=== PATIENT | female | born 1965 | race Caucasian/White ===

== ENCOUNTER 2017-05-08 12:15 | Emergency (ER) | payer OTHER ==
[2017-05-08] MEDS ORDERED: KETOROLAC 30 MG/ML 1 ML VIAL IVP STA (12:54)
[2017-05-08] MEDS ORDERED: METOCLOPRAMIDE 5 MG/ML 2 ML VIAL IVP STA (12:54)
[2017-05-08] MEDS ORDERED: diphenhydrAMINE 50 MG/ML 1 ML VIAL IVP STA (12:54)
[2017-05-08] MEDS ORDERED: SODIUM CHLORIDE 0.9% 1,000 ML IV STA (12:54)
[2017-05-08] MEDS ORDERED: ORPHENADRINE 30 MG/ML 2 ML VIAL IVP STA (12:55)
--- NOTE | 2017-05-08 13:02 | ED ---
Headache HPI - General Chief Complaint: Headache Stated Complaint: Headache x7 days Time Seen by Provider: 05/08/17 12:42 Source: RN notes reviewed, old records reviewed Mode of arrival: ambulatory Limitations: no limitations - History of Present Illness Initial Comments: This is a 51-year-old female presenting to the emergency department with multiple complaints. She complains that she's had a headache on the left right side of her head for the past 6 days. Patient reports that she's been having intermittent headaches for the past few weeks however the past 6 days became progressively worse. She saw her primary care provider and they plan to have her follow-up with a neurologist. She states that she cannot see a neurologist until June. She states she was up all night due to the headache and severe pain. She also states that she's been having some right upper quadrant abdominal pain. She states is worse whenever she takes deep breath. Denies any known fever or chills. Denies any nausea or vomiting. Patient states that the headache is not worse with any bright lights. - Related Data Home Medications Medication Instructions Recorded Confirmed amLODIPine BESYLATE [Norvasc] 5 mg PO DAILY 02/07/15 05/08/17 oxyCODONE HCL/ACETAMINOPHEN 1 tab PO TID PRN 02/07/15 05/08/17 [Oxycodone-Acetaminophen 10-325] ALPRAZolam [Xanax] 0.5 mg PO BID PRN 05/08/17 05/08/17 Cholecalciferol [Vitamin D3] 1,000 unit PO DAILY 05/08/17 05/08/17 Eye Itch Relief Eye Drops 1 drop BOTH EYES DAILY PRN 05/08/17 05/08/17 Ibuprofen [Motrin] 800 mg PO Q8H PRN 05/08/17 05/08/17 Nicotine 14Mg/24Hr Patch [Habitrol 1 patch TRANSDERM DAILY PRN 05/08/17 05/08/17 14Mg/24Hr Patch] [place]-3 Fatty Acids/Fish Oil [Fish 1 cap PO DAILY 05/08/17 05/08/17 Oil 1,000 mg Softgel] buPROPion HCL [Wellbutrin SR] 150 mg PO DAILY 05/08/17 05/08/17 Previous Rx's Medication Instructions Recorded Butalb/APAP/Caff 50-325-40Mg 2 tab PO Q4H PRN #15 tablet 05/08/17 [Fioricet 50-325-40] Allergies Allergy/AdvReac Type Severity Reaction Status Date / Time No Known Allergies Allergy Verified 05/08/17 14:23 Review of Systems ROS Statement: Those systems with pertinent positive or pertinent negative responses have been documented in the HPI. ROS Other: All systems not noted in ROS Statement are negative. Past Medical History Past Medical History: Hypertension Additional Past Medical History / Comment(s): Bilateral carpal tunnel syndrome, plantar fasciitis bilateral. History of Any Multi-Drug Resistant Organisms: None Reported Past Surgical History: Section Additional Past Surgical History / Comment(s): 1986 Past Anesthesia/Blood Transfusion Reactions: No Reported Reaction Past Psychological History: Anxiety, Depression Smoking Status: Current every day smoker Past Alcohol Use History: None Reported Past Drug Use History: None Reported - Past Family History Mother Family Medical History: Cancer Additional Family Medical History / Comment(s): Mother at age 62 from lung ca Father Family Medical History: Hypertension Additional Family Medical History / Comment(s): Father is alive and has hypertension. Brother(s) Additional Family Medical History / Comment(s): Has 2 brothers that are healthy. Patient has one sister that is alive and healthy. She has one sister that suffers spinal cord injury from an accident. Patient has 2 children, one boy that is 22 and healthy, one girl 25 and healthy. General Exam - General Exam Comments Initial Comments: This is a 51-year-old female. Patient does not appear to be in any acute distress. Limitations: no limitations General appearance: alert, in no apparent distress Head exam: Present: atraumatic, normocephalic, normal inspection Eye exam: Present: normal appearance, PERRL, EOMI. Absent: scleral icterus, conjunctival injection, periorbital swelling ENT exam: Present: normal exam, mucous membranes moist Neck exam: Present: normal inspection. Absent: tenderness, meningismus, lymphadenopathy Respiratory exam: Present: normal lung sounds bilaterally. Absent: respiratory distress, wheezes, rales, rhonchi, stridor Cardiovascular Exam: Present: regular rate, normal rhythm, normal heart sounds. Absent: systolic murmur, diastolic murmur, rubs, gallop, clicks GI/Abdominal exam: Present: soft, normal bowel sounds. Absent: distended, tenderness, guarding, rebound, rigid Extremities exam: Present: normal inspection, full ROM, normal capillary refill. Absent: tenderness, pedal edema, joint swelling, calf tenderness Back exam: Present: normal inspection, full ROM Neurological exam: Present: alert, oriented X3, CN II-XII intact Expanded Patient oriented to: Present: person, place, time Speech: Present: fluid speech Cranial nerves: EOM's Intact: Normal, Facial Sensation: Normal Cerebellar function: Finger to Nose: Normal Upper motor neuron: Pronator Drift: Normal Sensory exam: Upper Extremity Light Touch: Normal, Lower Extremity Light Touch: Normal Motor strength exam: RUE: 5, LUE: 5, RLE: 5, LLE: 5 Eye Response: (4) open spontaneously Motor Response: (6) obeys commands Verbal Response: (5) oriented [place] Total: 15 Psychiatric exam: Present: normal affect, normal mood Skin exam: Present: warm, dry, intact, normal color. Absent: rash Course Vital Signs 05/08/17 12:38 Temperature 98.3 F Pulse Rate 74 Respiratory 16 Rate Blood Pressure 147/82 O2 Sat by Pulse 97 Oximetry Medical Decision Making - Medical Decision Making 51-year-old female presents emergency Department with increased headache over the past 6 days. She also has some right upper quadrant abdominal pain. Patient's CAT scan with and without contrast of the brain was reviewed and negative for any acute process. Gallbladder ultrasound shows mildly dilated duct. All for labwork was reviewed and negative for any acute process. Patient has no neurological deficits. Patient reports she's been somewhat better after removal Benadryl and Toradol. Patient was informed of all the results. Discussed that I will discharge the patient at this time close follow- up with her primary care provider. Discussed writing her for adhesion for migraines. Discussed return to emergency department if any alarming signs or symptoms occur. Patient agrees to plan will comply. Return parameters were discussed. - Lab Data Result diagrams: 05/08/17 13:05 05/08/17 13:05 Lab Results 05/08/17 05/08/17 05/08/17 Range/Units 13:05 13:05 13:05 WBC 12.3 H (3.8-10.6) k/uL RBC 4.30 (3.80-5.40) m/uL Hgb 13.2 (11.4-16.0) gm/dL Hct 39.3 (34.0-46.0) % MCV 91.5 (80.0-100.0) fL MCH 30.8 (25.0-35.0) pg MCHC 33.7 (31.0-37.0) g/dL RDW 14.0 (11.5-15.5) % Plt Count 367 (150-450) k/uL Neutrophils % 81 % Lymphocytes % 12 % Monocytes % 4 % Eosinophils % 2 % Basophils % 0 % Neutrophils # 10.0 H (1.3-7.7) k/uL Lymphocytes # 1.5 (1.0-4.8) k/uL Monocytes # 0.5 (0-1.0) k/uL Eosinophils # 0.2 (0-0.7) k/uL Basophils # 0.1 (0-0.2) k/uL PT 10.1 (9.0-12.0) sec INR 1.0 (<1.2) APTT 24.0 (22.0-30.0) sec Sodium 142 (137-145) mmol/L Potassium 4.1 (3.5-5.1) mmol/L Chloride 108 H (98-107) mmol/L Carbon Dioxide 25 (22-30) mmol/L Anion Gap 9 mmol/L BUN 13 (7-17) mg/dL Creatinine 0.65 (0.52-1.04) mg/dL Est GFR (MDRD) Af Amer >60 (>60 ml/min/1.73 sqM) Est GFR (MDRD) Non-Af >60 (>60 ml/min/1.73 sqM) Glucose 93 (74-99) mg/dL Calcium 9.7 (8.4-10.2) mg/dL Total Bilirubin 0.3 (0.2-1.3) mg/dL AST 16 (14-36) U/L ALT 22 (9-52) U/L Alkaline Phosphatase 77 (38-126) U/L Total Protein 6.8 (6.3-8.2) g/dL Albumin 4.1 (3.5-5.0) g/dL - Radiology Data Radiology results: report reviewed CT without contrast is negative for any acute process. Gallbladder ultrasound shows tiny 3 mm echogenic focus within the gallbladder which may represent a non-shadowing stone or gallbladder polyp., That measures slightly prominent 7 mm correlate clinically and if warranted with MRCP or ERCP. Disposition Clinical Impression: Migraine, RUQ discomfort Disposition: HOME SELF-CARE Condition: Good Instructions: Migraine Headache (ED), Biliary Colic (ED) Additional Instructions: Patient advised to follow-up with primary care provider in regards to further evaluation of the abdomen and intermittent abdominal pain. Recommending taking the medication for migraines as directed. QT also take Motrin and Tylenol. Patient should return to the emergency department if any alarming signs or symptoms occur. Prescriptions: Butalb/APAP/Caff 50-325-40Mg [Fioricet 50-325-40] 2 tab PO Q4H PRN #15 tablet PRN Reason: Pain Referrals: Marcelo Choudhary MD [Primary Care Provider] - 1-2 days Kenna Mckeon DO [Doctor of Osteopathic Medicine] - 1-2 days Time of Disposition: 15:31
[2017-05-08] MEDS ORDERED: RX INFO: IV CONTRAST WAS GIVEN 1 EACH MISC MISCELLANE PRN (13:03)
[2017-05-08 13:26] LABS: Basophils # (A) 0.1 k/uL (0-0.2); Basophils % (A) 0 %; CH 30.7; CHCM 33.7; Eosinophils # (A) 0.2 k/uL (0-0.7); Eosinophils % (A) 2 %; HCT 39.3 % (34.0-46.0); HDW 2.87; HGB 13.2 gm/dL (11.4-16.0); Luc # (Auto) 0.17; Luc % (Auto) 1; Lymphocytes # (A) 1.5 k/uL (1.0-4.8); Lymphocytes % (A) 12 %; MCH 30.8 pg (25.0-35.0); MCHC 33.7 g/dL (31.0-37.0); MCV 91.5 fL (80.0-100.0); Mean Platelet Volume 7.4; Monocytes # (A) 0.5 k/uL (0-1.0); Monocytes % (A) 4 %; Neutrophils % (A) 81 %; WBC 12.3 k/uL (3.8-10.6); WBC (Perox) 12.73
[2017-05-08 13:33] LABS: Prothrombin Time 10.1 sec (9.0-12.0)
[2017-05-08 13:36] LABS: ALT 22 U/L (9-52); AST 16 U/L (14-36); Alkaline Phosphatase 77 U/L (38-126); Anion Gap 9 mmol/L; Blood Urea Nitrogen 13 mg/dL (7-17); Calcium 9.7 mg/dL (8.4-10.2); Carbon Dioxide 25 mmol/L (22-30); Chloride 108 mmol/L (98-107); Glucose 93 mg/dL (74-99); Non-African American GFR(MDRD) >60 (>60 ml/min/1.73 sqM); Potassium 4.1 mmol/L (3.5-5.1); Sodium 142 mmol/L (137-145); Total Bilirubin 0.3 mg/dL (0.2-1.3); Total Protein 6.8 g/dL (6.3-8.2)
--- NOTE | 2017-05-08 14:16 | CT ---
EXAMINATION TYPE: CT brain wo/w con DATE OF EXAM: 05/08/2017 COMPARISON: Noncontrast CT brain November 14, 2013 HISTORY: Headache for 6-[address] DLP: 2184 mGycm Automated exposure control for dose reduction was used. CONTRAST: CT scan of the head is performed without and with IV Contrast, patient injected with 100 mL of Omnipa que 300. FINDINGS: Noncontrast images show no acute intracranial hemorrhage or midline shift. The ventricles and sulci a re within normal limits in size. Post contrast images show no suspicious enhancing intraparenchymal mass. The globes are intact and the visualized sinuses are clear. Some patchy opacification of right- sided mastoid air cells is redemonstrated similar to prior. IMPRESSION: No acute intracranial hemorrhage. No suspicious enhancing mass or midline shift.
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
[2017-05-08 15:42] VITALS: BP 140/75; PULSE 77; RESP 18; TEMP 98.4
== END 2017-05-08 15:42 | disposition home or self-care (01) ==
LOC: EC 12:15
DX: G43.909 Migraine, unspecified, not intractable, without status migrainosus (principal); R10.11 Right upper quadrant pain; K83.8 Other specified diseases of biliary tract; R93.5 Abnormal findings on diagnostic imaging of other abdominal regions, including retroperitoneum; I10 Essential (primary) hypertension; F32.9 Major depressive disorder, single episode, unspecified; F17.200 Nicotine dependence, unspecified, uncomplicated; Z79.899 Other long term (current) drug therapy
CPT/HCPCS: 36415; 80053; 85025; 85610; 85730; 76705; 70470; 99284; 96374; 96375 ×3; 96361 ×2; J1200; J2360; J2765; J1885; Q9967

== ENCOUNTER 2017-05-19 10:47 | Emergency (ER) | payer OTHER ==
[2017-05-19] MEDS ORDERED: SODIUM CHLORIDE 0.9% 1,000 ML IV STA (11:09)
[2017-05-19] MEDS ORDERED: METOCLOPRAMIDE 5 MG/ML 2 ML VIAL IVP STA (11:09)
[2017-05-19] MEDS ORDERED: KETOROLAC 30 MG/ML 1 ML VIAL IVP STA (11:09)
[2017-05-19] MEDS ORDERED: SODIUM CHLORIDE 0.9% 500 ML IV STA (11:09)
[2017-05-19] MEDS ORDERED: MAGNESIUM SULFATE-D5W PMX 1 GM in DEXTROSE/WATER 1 100ML.BAG IVPB ONE (11:10)
[2017-05-19] MEDS ORDERED: DEXAMETHASONE SOD PHOSPHATE 10 MG/ML 1 ML VIAL IV STA (11:10)
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
[2017-05-19] MEDS ORDERED: ONDANSETRON 4 MG/2 ML VIAL IVP STA (13:07)
[2017-05-19] MEDS ORDERED: HYDROmorphone 1 MG/ML 1 ML SYRINGE IVP STA (13:07)
[2017-05-19 13:31] VITALS: PULSE 78
[2017-05-19 14:15] VITALS: BP 117/63; RESP 16; TEMP 98.2
== END 2017-05-19 14:15 | disposition home or self-care (01) ==
LOC: EC 10:47
DX: R51 Headache (principal); H66.91 Otitis media, unspecified, right ear; I10 Essential (primary) hypertension; F32.9 Major depressive disorder, single episode, unspecified; F41.9 Anxiety disorder, unspecified; F17.200 Nicotine dependence, unspecified, uncomplicated; Z86.69 Personal history of other diseases of the nervous system and sense organs; Z79.899 Other long term (current) drug therapy
CPT/HCPCS: 99284; 96365; 96375 ×5; 96361; J1100; J2765; J2405; J1885; J1170; J3475

== ENCOUNTER 2017-05-28 03:04 | Inpatient (IN) | payer OTHER ==
[2017-05-28] MEDS ORDERED: ONDANSETRON 4 MG/2 ML VIAL IVP STA (03:44)
[2017-05-28] MEDS ORDERED: HYDROmorphone 1 MG/ML 1 ML SYRINGE IVP STA ×2 (03:44→08:15)
[2017-05-28] MEDS ORDERED: SODIUM CHLORIDE 0.9% 1,000 ML IV STA (03:44)
--- NOTE | 2017-05-28 03:55 | ED ---
General Adult HPI - General Source: patient, RN notes reviewed Mode of arrival: ambulatory Limitations: no limitations <Hao Milton - Last Filed: 05/28/17 03:41> <Stiven Mtz - Last Filed: 05/28/17 05:42> - General Chief complaint: Headache Stated complaint: Headache 8 weeks Time Seen by Provider: 05/28/17 03:18 - History of Present Illness Initial comments: Patient 51-year-old female who presents emergency room today with chief complaint of headaches over the last 3 weeks. She does admit that she's been expressing headache on the right side of her head. She states been constant. She states she's been experiencing pain to her throat and right side of her neck. She states it hurts when she swallows. She states it's been ongoing over the last 8 days. She states she's lost 15 pounds. States that she's also been experiencing some pain to the anterior chest wall. States hurts with palpation. States she has been following up with neurology and has been receiving steroid injections. She states she has not felt any relief. She is scheduled for a CT tomorrow and an MRI following day. Patient denies any recent fever, chills, shortness of breath, chest pain, back pain, abdominal pain, nausea or vomiting, numbness or tingling, dysuria or hematuria, constipation or diarrhea, visual changes, or any other complaints. (Hao Milton) - Related Data Home Medications Medication Instructions Recorded Confirmed amLODIPine BESYLATE [Norvasc] 5 mg PO DAILY 02/07/15 05/19/17 oxyCODONE HCL/ACETAMINOPHEN 1 tab PO TID PRN 02/07/15 05/19/17 [Oxycodone-Acetaminophen 10-325] ALPRAZolam [Xanax] 0.5 mg PO BID PRN 05/08/17 05/19/17 Eye Itch Relief Eye Drops 1 drop BOTH EYES DAILY PRN 05/08/17 05/19/17 Ibuprofen [Motrin] 800 mg PO Q8H PRN 05/08/17 05/19/17 Nicotine 14Mg/24Hr Patch [Habitrol 1 patch TRANSDERM DAILY PRN 05/08/17 05/19/17 14Mg/24Hr Patch] buPROPion HCL [Wellbutrin SR] 150 mg PO DAILY 05/08/17 05/19/17 Escitalopram [Lexapro] 10 mg PO DAILY 05/19/17 05/19/17 Pentoxifylline 400 mg PO BID 05/19/17 05/19/17 Previous Rx's Medication Instructions Recorded Butalb/APAP/Caff 50-325-40Mg 2 tab PO Q4H PRN #15 tablet 05/08/17 [Fioricet 50-325-40] Amoxic-Pot Clav 875-125Mg 1 each PO Q12HR #20 tablet 05/19/17 [Augmentin Xr 875-125] SUMAtriptan SUCCINATE [Imitrex] 50 mg PO ONCE PRN #10 tablet 05/19/17 Allergies Allergy/AdvReac Type Severity Reaction Status Date / Time No Known Allergies Allergy Verified 05/28/17 03:11 Review of Systems ROS Other: All systems not noted in ROS Statement are negative. <Hao Milton - Last Filed: 05/28/17 03:41> ROS Other: All systems not noted in ROS Statement are negative. <Stiven Mtz - Last Filed: 05/28/17 05:42> ROS Statement: Those systems with pertinent positive or pertinent negative responses have been documented in the HPI. Past Medical History Past Medical History: Hypertension Additional Past Medical History / Comment(s): Bilateral carpal tunnel syndrome, plantar fasciitis bilateral. Migraines History of Any Multi-Drug Resistant Organisms: None Reported Past Surgical History: Section Additional Past Surgical History / Comment(s): 1987 Past Anesthesia/Blood Transfusion Reactions: No Reported Reaction Past Psychological History: Anxiety, Depression Smoking Status: Current every day smoker Past Alcohol Use History: None Reported Past Drug Use History: None Reported - Past Family History Mother Family Medical History: Cancer Additional Family Medical History / Comment(s): Mother at age 62 from lung ca Father Family Medical History: Hypertension Additional Family Medical History / Comment(s): Father is alive and has hypertension. Brother(s) Additional Family Medical History / Comment(s): Has 2 brothers that are healthy. Patient has one sister that is alive and healthy. She has one sister that suffers spinal cord injury from an accident. Patient has 2 children, one boy that is 22 and healthy, one girl 25 and healthy. <Hao Milton - Last Filed: 05/28/17 03:41> General Exam Limitations: no limitations <Hao Milton - Last Filed: 05/28/17 03:41> <Stiven Mtz - Last Filed: 05/28/17 05:42> - General Exam Comments Initial Comments: General: The patient is awake and alert, in no distress, and does not appear acutely ill. Eye: Pupils are equal, round and reactive to light, extra-ocular movements are intact. No nystagmus. There is normal conjunctiva bilaterally. No signs of icterus. Ears, nose, mouth and throat: There are moist mucous membranes and no oral lesions. Neck: The neck is supple, there is no tenderness or JVD. Cardiovascular: There is a regular rate and rhythm. No murmur, rub or gallop is appreciated. Respiratory: Lungs are clear to auscultation, respirations are non-labored, breath sounds are equal. No wheezes, stridor, rales, or rhonchi. Gastrointestinal: Soft, non-distended, non-tender abdomen without masses or organomegaly noted. There is no rebound or guarding present. No CVA tenderness. Bowel sounds are unremarkable. Musculoskeletal: Normal ROM, no tenderness. Strength 5/5. Sensation intact. Pulses equal bilaterally 2+. Neurological: A&O x 3. CN II-XII intact. Coordination appears grossly intact. Speech is normal. Patient has normal rapid alternating movements. Symmetrical smile. When sticking tongue straight out does deviate to the right. Strength to the right lower extremity's weaker when compared bilaterally. Finger-nose testing of the right patient does overshoot. Skin: Skin is warm and dry and no rashes or lesions are noted. Psychiatric: Cooperative, appropriate mood & affect, normal judgment. (Hao Milton) Medical Decision Making <Hao Milton - Last Filed: 05/28/17 03:41> - Lab Data Result diagrams: 05/28/17 03:53 05/28/17 03:53 <Stiven Mtz - Last Filed: 05/28/17 05:42> - Medical Decision Making Case was discussed with attending physician Dr. Mtz. Patient did have CT 2 weeks ago which was negative for these any acute abnormalities. Patient's symptoms been ongoing over the last 8 weeks. Patient will be admitted for neurology consult. (Hao Milton) EKG shows normal sinus rhythm at [address] interval is on a 46 QRS is 90 QT interval 392 QTC is 392. Patient's EKG shows no ST segment elevation or depression or T wave abnormalities are noted. (Stiven Mzt) - Lab Data Lab Results 05/28/17 05/28/17 05/28/17 Range/Units 03:50 03:53 03:53 WBC 12.0 H (3.8-10.6) k/uL RBC 3.79 L (3.80-5.40) m/uL Hgb 11.6 (11.4-16.0) gm/dL Hct 35.8 (34.0-46.0) % MCV 94.7 (80.0-100.0) fL MCH 30.7 (25.0-35.0) pg MCHC 32.4 (31.0-37.0) g/dL RDW 15.9 H (11.5-15.5) % Plt Count 334 (150-450) k/uL Neutrophils % 75 % Lymphocytes % 16 % Monocytes % 7 % Eosinophils % 1 % Basophils % 0 % Neutrophils # 8.9 H (1.3-7.7) k/uL Lymphocytes # 1.9 (1.0-4.8) k/uL Monocytes # 0.8 (0-1.0) k/uL Eosinophils # 0.2 (0-0.7) k/uL Basophils # 0.0 (0-0.2) k/uL PT (9.0-12.0) sec INR (<1.2) APTT (22.0-30.0) sec Sodium (137-145) mmol/L Potassium (3.5-5.1) mmol/L Chloride (98-107) mmol/L Carbon Dioxide (22-30) mmol/L Anion Gap mmol/L BUN (7-17) mg/dL Creatinine (0.52-1.04) mg/dL Est GFR (MDRD) Af Amer (>60 ml/min/1.73 sqM) Est GFR (MDRD) Non-Af (>60 ml/min/1.73 sqM) Glucose (74-99) mg/dL Calcium (8.4-10.2) mg/dL Total Bilirubin (0.2-1.3) mg/dL AST (14-36) U/L ALT (9-52) U/L Alkaline Phosphatase (38-126) U/L Total Creatine Kinase <20 L (30-135) U/L CK-MB (CK-2) 0.6 (0.0-2.4) ng/mL CK-MB (CK-2) Rel Index Troponin I <0.012 (0.000-0.034) ng/mL Total Protein (6.3-8.2) g/dL Albumin (3.5-5.0) g/dL Urine Color Light Yellow Urine Appearance Clear (Clear) Urine pH 6.0 (5.0-8.0) Ur Specific [place] 1.013 (1.001-1.035) Urine Protein Negative (Negative) Urine Glucose (UA) Negative (Negative) Urine Ketones Negative (Negative) Urine Blood Negative (Negative) Urine Nitrite Negative (Negative) Urine Bilirubin Negative (Negative) Urine Urobilinogen <2.0 (<2.0) mg/dL Ur Leukocyte Esterase Negative (Negative) 05/28/17 05/28/17 Range/Units 03:53 03:53 WBC (3.8-10.6) k/uL RBC (3.80-5.40) m/uL Hgb (11.4-16.0) gm/dL Hct (34.0-46.0) % MCV (80.0-100.0) fL MCH (25.0-35.0) pg MCHC (31.0-37.0) g/dL RDW (11.5-15.5) % Plt Count (150-450) k/uL Neutrophils % % Lymphocytes % % Monocytes % % Eosinophils % % Basophils % % Neutrophils # (1.3-7.7) k/uL Lymphocytes # (1.0-4.8) k/uL Monocytes # (0-1.0) k/uL Eosinophils # (0-0.7) k/uL Basophils # (0-0.2) k/uL PT 10.0 (9.0-12.0) sec INR 1.0 (<1.2) APTT 22.1 (22.0-30.0) sec Sodium 136 L (137-145) mmol/L Potassium 4.2 (3.5-5.1) mmol/L Chloride 104 (98-107) mmol/L Carbon Dioxide 25 (22-30) mmol/L Anion Gap 7 mmol/L BUN 10 (7-17) mg/dL Creatinine 0.50 L (0.52-1.04) mg/dL Est GFR (MDRD) Af Amer >60 (>60 ml/min/1.73 sqM) Est GFR (MDRD) Non-Af >60 (>60 ml/min/1.73 sqM) Glucose 87 (74-99) mg/dL Calcium 9.2 (8.4-10.2) mg/dL Total Bilirubin 0.4 (0.2-1.3) mg/dL AST 12 L (14-36) U/L ALT 28 (9-52) U/L Alkaline Phosphatase 103 (38-126) U/L Total Creatine Kinase (30-135) U/L CK-MB (CK-2) (0.0-2.4) ng/mL CK-MB (CK-2) Rel Index Troponin I (0.000-0.034) ng/mL Total Protein 5.8 L (6.3-8.2) g/dL Albumin 3.4 L (3.5-5.0) g/dL Urine Color Urine Appearance (Clear) Urine pH (5.0-8.0) Ur Specific [place] (1.001-1.035) Urine Protein (Negative) Urine Glucose (UA) (Negative) Urine Ketones (Negative) Urine Blood (Negative) Urine Nitrite (Negative) Urine Bilirubin (Negative) Urine Urobilinogen (<2.0) mg/dL Ur Leukocyte Esterase (Negative) Disposition Time of Disposition: 03:56 <Hao Milton - Last Filed: 05/28/17 03:41> <Stiven Mtz - Last Filed: 05/28/17 05:42> Clinical Impression: Headache Disposition: ADMITTED IP TO THIS HOSP Condition: Stable
[2017-05-28 04:07] LABS: Basophils % (A) 0 %; CH 31.4; CHCM 33.4; Eosinophils # (A) 0.2 k/uL (0-0.7); Eosinophils % (A) 1 %; HCT 35.8 % (34.0-46.0); HDW 3.22; HGB 11.6 gm/dL (11.4-16.0); Luc # (Auto) 0.14; Luc % (Auto) 1; Lymphocytes # (A) 1.9 k/uL (1.0-4.8); Lymphocytes % (A) 16 %; MCH 30.7 pg (25.0-35.0); MCHC 32.4 g/dL (31.0-37.0); MCV 94.7 fL (80.0-100.0); Mean Platelet Volume 7.8; Monocytes # (A) 0.8 k/uL (0-1.0); Monocytes % (A) 7 %; Neutrophils # (A) 8.9 k/uL (1.3-7.7); Neutrophils % (A) 75 %; RBC 3.79 m/uL (3.80-5.40); RDW 15.9 % (11.5-15.5); WBC (Perox) 13.35
[2017-05-28 04:14] LABS: ALT 28 U/L (9-52); AST 12 U/L (14-36); Alkaline Phosphatase 103 U/L (38-126); Anion Gap 7 mmol/L; Blood Urea Nitrogen 10 mg/dL (7-17); Calcium 9.2 mg/dL (8.4-10.2); Carbon Dioxide 25 mmol/L (22-30); Chloride 104 mmol/L (98-107); Glucose 87 mg/dL (74-99); Non-African American GFR(MDRD) >60 (>60 ml/min/1.73 sqM); Potassium 4.2 mmol/L (3.5-5.1); Sodium 136 mmol/L (137-145); Total Bilirubin 0.4 mg/dL (0.2-1.3); Total Protein 5.8 g/dL (6.3-8.2)
[2017-05-28 04:19] LABS: Partial Thromboplastin Time 22.1 sec (22.0-30.0)
[2017-05-28 04:23] LABS: Appearance,Urine Clear (Clear); Bilirubin,Urine Negative (Negative); Glucose,Urine (UA) Negative (Negative); Ketones,Urine Negative (Negative); Leukocyte Esterase,Urine Negative (Negative); Nitrite,Urine Negative (Negative); Protein,Urine Negative (Negative); Specific Gravity,Urine 1.013 (1.001-1.035); UA Billing (MACRO vs. MICRO) CHEM; Urobilinogen,Urine <2.0 mg/dL (<2.0)
[2017-05-28 04:31] LABS: Creatine Kinase <20 U/L (30-135)
[2017-05-28 04:44] LABS: Creatine Kinase MB 0.6 ng/mL (0.0-2.4); Troponin I <0.012 ng/mL (0.000-0.034)
--- NOTE | 2017-05-28 05:26 | XR ---
EXAM: XR Chest, 2 Views CLINICAL HISTORY: Reason: pain TECHNIQUE: Frontal and lateral views of the chest. COMPARISON: 09/26/08 radiographs. FINDINGS: Lungs: New round masslike infiltrate overlying the left hilum on the frontal view, located anteriorly within the left upper lobe on the lateral view. The right lung is free of infiltrate. Of incidental note is a prominent nipple shadow overlying the right base. Pleural space: No pleural effusion or pneumothorax. Heart: Interval enlargement, with borderline cardiomegaly present. Mediastinum: The mediastinal contours are now slightly more prominent. Bones/joints: Degenerative changes and minimal levoscoliosis centered at T7-8, accompanied by mild rightward loss of height at T7 that appears chronic as does mild anterior loss of height at T12. Upper abdomen: Mild elevation of the left diaphragm is new. IMPRESSION: 1. New left lung infiltrate that appears to be located anterior to the left hilum. This may represent pneumonia in the appropriate clinical setting. Correlate clinically with follow-up recommended to ensure clearing and exclude underlying pathology including lung neoplasm. Alternatively, CT could be considered for further assessment. 2. There is now mild elevation of the left diaphragm and mild interval enlargement of the cardiomediastinal silhouette. [employer] 05/28/17 05:38 Verify Receipt with Nurse Verified receipt with JANKI Mc, given to Dr. Mtz on 05/28 05:37 (-04:00)
[2017-05-28] MEDS ORDERED: KETOROLAC 30 MG/ML 1 ML VIAL IM STA (08:17)
[2017-05-28] MEDS ORDERED: SUMAtriptan SUCCINATE 50 MG TAB PO PRN (08:39)
[2017-05-28] MEDS ORDERED: KETOTIFEN 0.025% OPHTH DROPS 5 ML BTL BOTH EYES PRN (08:39)
--- NOTE | 2017-05-28 10:09 | US ---
EXAMINATION TYPE: US carotid duplex BILAT DATE OF EXAM: 05/28/2017 COMPARISON: NONE CLINICAL HISTORY: Stenosis. EXAM MEASUREMENTS: RIGHT: Peak Systolic Velocity (PSV) cm/sec ----- Right CCA: 83.8 ----- Right ICA: 145.0 ----- Right ECA: 73.5 ICA/CCA ratio: 1.7 RIGHT: End Diastole cm/sec ----- Right CCA: 28.5 ----- Right ICA: 62.2 ----- Right ECA: 9.5 LEFT: Peak Systolic Velocity (PSV) cm/sec ----- Left CCA: 84.1 ----- Left ICA: 160.1 ----- Left ECA: 84.4 ICA/CCA ratio: 1.9 LEFT: End Diastole cm/sec ----- Left CCA: 26.3 ----- Left ICA: 69.8 ----- Left ECA: 84.4 VERTEBRALS (direction of flow): Right Vertebral: Antegrade Left Vertebral: Antegrade Patient in immense pain and unable to tilt or move neck to cooperate with examiner, this in addition to tortuous vessels made exam technically difficult. Slight velocity elevations seen bilaterally, may be due to tortuous vessels, mild plaque seen. IMPRESSION: 1. Mild plaque bilaterally with no significant hemodynamic stenosis noted bilaterally (50% or less) b y indirect measurements of the internal carotid arteries with Doppler ultrasound.
[2017-05-28] MEDS: ENOXAPARIN 40 MG/0.4 ML SYRINGE SQ SCH (10:58)
[2017-05-28] MEDS: PENTOXIFYLLINE 400 MG TABLET.ER PO SCH ×2 (10:59→21:37)
[2017-05-28] MEDS: amLODIPine 5 MG TAB PO SCH (10:59)
[2017-05-28] MEDS: buPROPion SR 150 MG TABLET.ER PO SCH (10:59)
[2017-05-28] MEDS: ESCITALOPRAM 10 MG TAB PO SCH (10:59)
[2017-05-28] MEDS: NICOTINE 14MG/24HR PATCH TRANSDERM PRN (10:59)
[2017-05-28] MEDS: HYDROmorphone 1 MG/ML 1 ML SYRINGE IVP PRN ×4 (12:58→21:37)
[2017-05-28] MEDS: oxyCODONE-APAP 10-325MG 1 EACH TAB PO PRN ×2 (14:44→22:46)
[2017-05-28] MEDS ORDERED: LORazepam 2 MG/ML INJ IV ONE (15:45)
[2017-05-28] MEDS ORDERED: LORazepam 2 MG/ML INJ IV STA (16:04)
[2017-05-28] MEDS ORDERED: RX INFO: IV CONTRAST WAS GIVEN 1 EACH MISC MISCELLANE PRN ×2 (18:24→20:10)
--- NOTE | 2017-05-28 18:39 | MR ---
EXAMINATION TYPE: MR brain wo con DATE OF EXAM: 05/28/2017 COMPARISON: NONE HISTORY: Headache, ear pain, neck pain and slurred speech Standard multiplanar, multisequence MRI departmental protocol Multiplanar, multisequence images of the brain were acquired. Diffusion weighted imaging was performe d. FINDINGS: Ventricles and sulci appear normal. There is no mass effect nor midline shift. There is no sign of intracranial hemorrhage. Armstrong and white matter structures have fairly normal signal pattern. There is no evidence of cerebral edema. There is no sign of acute cortical infarct. Brainstem appears normal. Corpus callosum appears normal. Sella turcica is normal. IMPRESSION: MR scan of the brain is normal for age.
--- NOTE | 2017-05-28 18:44 | MR ---
EXAMINATION TYPE: MR neck wo/w con DATE OF EXAM: 05/28/2017 COMPARISON: NONE HISTORY: Headache, ear pain, neck pain and slurred speech CONTRAST: Standard multiplanar, multisequence MRI departmental protocol utilizing 4.5 ml mL intravenous Gadavis t gadolinium contrast. FINDINGS: Parotid glands are symmetric. Submandibular salivary glands appear normal. Cervical spine a ppears intact. There is no evidence of spinal stenosis. Cervical spinal cord appears normal. There is no evidence of a pharyngeal mass. Exam is limited slightly by motion. I see no evidence of cervical adenopathy. There is normal flow void in the carotid and vertebral arteries. The contrast images show no pathologic enhancement. IMPRESSION: Negative MR scan of the neck. I do not see a cause for the patient's symptoms.
--- NOTE | 2017-05-28 18:49 | MR ---
EXAMINATION TYPE: MR angio head wo/neck wo/w con DATE OF EXAM: 05/28/2017 COMPARISON: NONE HISTORY: Headache, ear pain, neck pain and slurred speech TECHNIQUE: Time of flight images focusing on the [place] were performed without contrast.. 2-D and 3-D postprocessing imaging is performed. FINDINGS: There is arterial flow in the vertebrobasilar artery system. There is arterial flow in the anterior middle and posterior cerebral arteries. There is no evidence of aneurysm or neovascularity. There is flow in the left posterior communicating artery. There is no mass effect. There is normal branching pattern of the great vessels on the aortic arch. There is wide patency of t he common internal and external carotid arteries bilaterally. There is wide patency of the vertebral arteries. There is no evidence of stenosis. There is no sign of dissection. IMPRESSION: Normal MR angiogram of the brain. Normal MR angiogram of the neck.
--- NOTE | 2017-05-28 20:31 | CT ---
EXAMINATION TYPE: CT angio chest DATE OF EXAM: 05/28/2017 8:11 PM COMPARISON: NONE HISTORY: Mid chest pain, painful swallowing and tongue swelling. CT DLP: 106.70 mGycm Automated exposure control for dose reduction was used. CONTRAST: CTA scan of the thorax is performed with IV Contrast, patient injected with 72 mL of Omnipaque 350, p ulmonary embolism protocol. There are 3-D post processed images.. FINDINGS: There is extensive abnormal soft tissue density in the mediastinum encasing the left pulmonary artery and also adjacent to the aortic arch. There is 6 x 4 cm masslike area at the left pulmonary hilum ex tending into the left upper lobe. I see no filling defects in the pulmonary arteries. There is small left pleural effusion. There is no evidence of aortic aneurysm or dissection. Heart is slightly enlarged. There is mild infiltrate at the left lung base. There is interstitial infiltrate in the left upper lo be. There are destructive changes in the T7 vertebral body with slight loss of height. 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 DESTRUCTIVE CHANGES IN T7 VERTEBRA CONSISTENT WITH METASTATIC DISEASE. NO EVIDENCE OF PULMONARY EMBOLISM. SMALL LEFT PLEURAL EFFUSION WITH MILD INFILTRATE IN THE LEFT LOWER LOBE.
[2017-05-29] MEDS: HYDROmorphone 1 MG/ML 1 ML SYRINGE IVP PRN ×9 (00:46→23:18)
[2017-05-29] MEDS: oxyCODONE-APAP 10-325MG 1 EACH TAB PO PRN ×3 (06:17→21:23)
[2017-05-29 06:52] LABS: Cholesterol 137 mg/dL (<200); HDL Cholesterol 51 mg/dL (40-60)
--- NOTE | 2017-05-29 07:43 | CONS ---
CONSULTATION REASON FOR CONSULTATION: Painful swallowing, headache. HISTORY: This is a 51-year-old, white female, who states that she has had headaches for about 8 weeks. These are diffuse. She has had headaches in the past including migraines but these she feels are different. She has also had some pain with swallowing, which is a sharp stabbing pain diffusely in the right neck mainly when she swallows and therefore has lost some weight. She also has pain of the anterior chest wall superiorly, which is quite sensitive even to light touch. She did see a neurologist as an outpatient recently and had some steroid injections with no improvement. She had a CT as an outpatient of the brain, which was negative apparently. She yesterday had brain MRI, neck MRI, which was negative. Head and neck MRA which were negative and carotid Doppler study which was unremarkable. Chest x-ray did have suspicious mass and yesterday also had a chest CT angiography, which showed a 6 x 4 cm mass left pulmonary hilum into the left upper lobe. There was also a destructive change in the T7 vertebra. PAST MEDICAL HISTORY: Past medical history is positive hypertension, carpal tunnel syndrome, plantar fasciitis, migraines. PAST SURGICAL HISTORY: MEDICATIONS AT HOME: Norvasc, oxycodone, Xanax, Motrin, Habitrol, Wellbutrin, Lexapro, pentoxifylline. ALLERGIES: No known drug allergies. SOCIAL HISTORY: Does smoke. Denies alcohol use. FAMILY HISTORY: Family history positive for lung cancer in her mother. REVIEW OF SYSTEMS: The patient denies dysphagia, but has pain with swallowing and she has had no hoarseness or otalgia. Review of systems otherwise noncontributory. PHYSICAL EXAM: Patient is afebrile. GENERAL: This is a well-developed, adult, white female, in no acute distress. She is conversant, awake, alert and oriented x3. HEENT: Head normocephalic, atraumatic. Ears bilateral ear canals clear. Tympanic membranes unremarkable. of the nose shows obstruction. Mouth and throat shows mild dryness of the oral cavity, but no abnormal masses or lesions. Hypopharynx and larynx with flexible laryngoscopy shows no abnormal masses or lesions. NECK: Supple without adenopathy. There is point tenderness diffusely over the upper chest wall although no masses were noted or erythema. ASSESSMENT: 1. Odynophagia. 2. Mediastinal mass with destructive lesion T7. PLAN: The patient's symptoms appear to be neurologic in nature such as neuralgia and certainly could be related to her underlying mass, which is quite concerning as well as the finding on T7. Would recommend cardiothoracic and/or pulmonary consultation for further evaluation and diagnosis. Continue neurology workup also. Also it appears that she will ultimately need oncology consultation also. If these workups are noncontributory and she continues to have difficulties with the painful swallowing then please re-consult. MMODL / IJN: [id number] /
--- NOTE | 2017-05-29 07:49 | PCN ---
PROCEDURE NOTE PROCEDURE NOTE: PREOPERATIVE DIAGNOSIS: Odynophagia. POSTOPERATIVE DIAGNOSIS: Odynophagia. PROCEDURE: Flexible laryngoscopy. ANESTHESIA: None. COMPLICATIONS: None. BLOOD LOSS: None. PROCEDURE: The patient was in her hospital bed and flexible nasopharyngoscopy/laryngoscopy was performed through the right nasal cavity with a systematic evaluation of the right nasal cavity, nasopharynx, oropharynx, hypopharynx and larynx with no abnormal masses or lesions noted. Normal vocal cord mobility. Laryngoscope was withdrawn. Patient tolerated this well. No complications. MMODL / IJN: [id number] /
[2017-05-29] MEDS: PENTOXIFYLLINE 400 MG TABLET.ER PO SCH ×2 (08:38→20:25)
[2017-05-29] MEDS: buPROPion SR 150 MG TABLET.ER PO SCH (08:38)
[2017-05-29] MEDS: ENOXAPARIN 40 MG/0.4 ML SYRINGE SQ SCH (08:38)
[2017-05-29] MEDS: amLODIPine 5 MG TAB PO SCH (08:38)
[2017-05-29] MEDS: ESCITALOPRAM 10 MG TAB PO SCH (08:38)
--- NOTE | 2017-05-29 08:57 | CONS ---
CONSULTATION DATE OF SERVICE: 05/28/2017 CHIEF COMPLAINT: Headache. HISTORY OF PRESENT ILLNESS: Mrs. Campa is a pleasant 51-year-old, female, who was being evaluated today on 05/28/2017 by the Neurology Service per the request of Dr. Lora for an intractable headache. The patient has recently established care at my clinic and had been complaining of a daily headache for over 3 weeks. The patient does have previous history of headaches but has never had one lasting this long. The headache is mostly in the right frontal parietal region and she describes it as a constant pressure pain that can be throbbing at times. She had been tried on IV steroid regimen but she denies any improvements. In the office, she was also complaining of sternal pain which was reproducible and quite tender to the touch. A chest x-ray was done which showed a masslike lesion in the left hilum area. The patient was brought into [facility] Emergency Room for further workup. She had also been complaining of severe pain with swallowing. She has lost over 10 pounds over the past couple of months. She denies any fevers or chills. I did order an MRI of the brain and neck, both of which were normal. Her MRA of the neck showed no significant stenosis or any evidence of dissection. Her CBC showed mild leukocytosis at 12.0 and her comprehensive metabolic profile and urinalysis were normal. Her carotid Doppler showed no hemodynamically significant stenosis. She is receiving Dilaudid as needed for her headache which is helping her somewhat as it reduces her pain from a 9/10 to a 6/10. PAST MEDICAL HISTORY: Hypertension, carpal tunnel syndrome, migraine headaches, depression, anxiety disorder, history of . SOCIAL HISTORY: The patient is a current every day smoker. She denies any alcohol or drug use. FAMILY HISTORY: Positive for lung cancer and hypertension. HOME MEDICATIONS: Reviewed in the chart. ALLERGIES: No known drug allergies. REVIEW OF SYSTEMS: CONSTITUTIONAL: As mentioned above. EYES: Negative. ENT: Positive for ear pain. CARDIOVASCULAR: As mentioned above. RESPIRATORY: Negative. NEUROLOGICAL: As mentioned above. She denies any lateralizing numbness or weakness. GASTROINTESTINAL: As mentioned above. GENITOURINARY: Negative. PSYCHIATRIC: Positive for history of depression and anxiety disorder. MUSCULOSKELETAL: As mentioned above. ENDOCRINE: Negative. DERMATOLOGICAL: Negative. PHYSICAL EXAM: Vital signs show a temperature of 98.0, pulse 69, respirations 16, blood pressure 155/82. GENERAL APPEARANCE: The patient is a thin female, who appears to be in mild distress due to pain. HEENT: Normocephalic, atraumatic, no facial asymmetry is seen. NECK: Supple with no masses felt. CARDIOVASCULAR: Regular rate and rhythm. ABDOMEN: Nontender nondistended. Extremities showed no edema or clubbing. NEUROLOGICAL EXAM: The patient is alert, aware and oriented x3. Speech and language are normal. No lateralizing weakness is seen on strength testing. Gait is normal. Sensory exam was normal to light touch in all 4 extremities. No facial asymmetry is seen on cranial nerve testing. No tremors or seizure-like activity is seen. IMPRESSION: 1. Intractable headache. 2. Atypical chest pain. 3. Lung mass. 4. Dysphagia. 5. Neck pain. 6. Tobacco dependence. RECOMMENDATION: The patient's headache continues to be present but is being relieved with Dilaudid. Her MRI of the brain and MRA of the brain were normal and she was reassured from that standpoint. There are significant concerns regarding her reproducible chest pain and dysphagia as her chest x-ray does show an evidence of a large mass. The patient has had significant weight loss lately and she is a tobacco user and has a family history of lung cancer. A CT scan of the chest has been ordered. I do recommend a consultation with Oncology and Pulmonology. I will consult Speech Therapy for her dysphagia. Continue Dilaudid as needed. Prognosis is guarded. I will continue to follow with you. Further recommendations to follow. Thank you for allowing me to participate in the care of your patient. If you have any questions, please feel free to contact me. MMODL / IJN: [id number] /
[2017-05-29] MEDS: ONDANSETRON 4 MG/2 ML VIAL IVP PRN ×2 (11:04→20:23)
[2017-05-29] MEDS: NICOTINE 14MG/24HR PATCH TRANSDERM PRN (11:19)
[2017-05-29 12:10] VITALS: BMI 18.4
[2017-05-29] MEDS: BUTALB/APAP/CAFF 50-325-40MG TAB PO PRN ×2 (12:23→20:25)
--- NOTE | 2017-05-29 13:34 | P.CNPUL ---
History of Present Illness Consult date: 05/29/17 Requesting physician: Tushar Lora Reason for consult: abnormal CXR/CT Chief complaint: Headache History of present illness: This is a 51-year-old female, heavy smoker, primarily a patient with Dr. Choudhary, patient was admitted yesterday on 05/28/2017 with severe persistent headache for the last 3 weeks. Patient never had a headache lasting that long. Described the headache as mostly in the right frontal parietal region, constant pressure and pain, throbbing at times. Tried on steroids, but no improvement. Patient was seen by her primary care physician for her headaches, and no specific cause for her headache was discovered. Patient came into the ER yesterday complaining of headaches, and since admission she had an extensive workup for her headaches including head and neck MRI/MRA, neck MRI, brain MRI, and these were all nondiagnostic. Part of the workup in the ER included a chest x-ray which I reviewed last night, and I felt certainly that the patient has a left hilar mass. I ordered a CT of the chest to be done this morning. Indeed her CT of the chest did show a large left upper lobe and mediastinal mass consistent with malignancy. The mass seems to be encasing the left pulmonary artery and it is adjacent to the aortic arch. Measured 64 cm and extending from the left hilum into the left upper lobe. There was also evidence of destructive changes noted in T7 vertebral consistent with metastatic disease. Patient has been complaining of 15 pound weight loss over the last couple of months, generalized weakness, fatigue, malaise, and again for the last few weeks the patient has been complaining of severe right-sided headaches. Patient has also been complaining of difficulty swallowing and pain when she swallows. Hence her oral intake has been very poor because of the pain upon swallowing. For some reason patient was seen by ENT for odynophagia symptoms, and she underwent direct laryngoscope he which is definitely nondiagnostic. At any rate after evaluating the patient, I recommended that the patient undergoes bronchoscopy and endobronchial or possibly transbronchial biopsy of the left upper lobe mass which seems to be extending from the left hilum all the way up to the left upper lobe. Patient was made aware that this is a malignant lesion unless proven otherwise. And considering the distal duct of lesion of thoracic vertebra #7 this is consistent with metastatic lung carcinoma, however a tissue diagnosis would have to be made. Review of Systems 14 point review of systems were obtained, please refer to pertinent positives noted in HPI, otherwise all remaining systems are negative. Past Medical History Past Medical History: Hypertension Additional Past Medical History / Comment(s): Bilateral carpal tunnel syndrome, plantar fasciitis bilateral. Migraines History of Any Multi-Drug Resistant Organisms: None Reported Past Surgical History: Section Additional Past Surgical History / Comment(s): 1986 Past Anesthesia/Blood Transfusion Reactions: No Reported Reaction Past Psychological History: Anxiety, Depression Smoking Status: Current every day smoker Past Alcohol Use History: None Reported Past Drug Use History: None Reported - Past Family History Mother Family Medical History: Cancer Additional Family Medical History / Comment(s): Mother at age 62 from lung ca Father Family Medical History: Hypertension Additional Family Medical History / Comment(s): Father is alive and has hypertension. Brother(s) Additional Family Medical History / Comment(s): Has 2 brothers that are healthy. Patient has one sister that is alive and healthy. She has one sister that suffers spinal cord injury from an accident. Patient has 2 children, one boy that is 22 and healthy, one girl 25 and healthy. Medications and Allergies Home Medications Medication Instructions Recorded Confirmed Type amLODIPine BESYLATE [Norvasc] 5 mg PO DAILY 02/07/15 05/28/17 History oxyCODONE HCL/ACETAMINOPHEN 1 tab PO TID PRN 02/07/15 05/28/17 History [Oxycodone-Acetaminophen 10-325] ALPRAZolam [Xanax] 0.5 mg PO BID PRN 05/08/17 05/28/17 History Butalb/APAP/Caff 50-325-40Mg 2 tab PO Q4H PRN #15 tablet 05/08/17 05/28/17 Rx [Fioricet 50-325-40] Eye Itch Relief Eye Drops 1 drop BOTH EYES DAILY PRN 05/08/17 05/28/17 History Ibuprofen [Motrin] 800 mg PO Q8H PRN 05/08/17 05/28/17 History Nicotine 14Mg/24Hr Patch [Habitrol 1 patch TRANSDERM DAILY PRN 05/08/17 History 14Mg/24Hr Patch] buPROPion HCL [Wellbutrin SR] 150 mg PO DAILY 05/08/17 05/28/17 History Escitalopram [Lexapro] 10 mg PO DAILY 05/19/17 05/28/17 History Pentoxifylline 400 mg PO BID 05/19/17 05/28/17 History SUMAtriptan SUCCINATE [Imitrex] 50 mg PO DAILY PRN 05/28/17 05/28/17 History Allergies Allergy/AdvReac Type Severity Reaction Status Date / Time No Known Allergies Allergy Verified 05/28/17 07:01 Physical Exam Vitals: Vital Signs Temp Pulse Resp BP Pulse Ox 05/29/17 04:00 99.4 F 71 18 160/81 97 05/29/17 00:00 98.0 F 67 18 128/82 95 05/28/17 20:00 98.8 F 66 20 153/74 96 05/28/17 16:00 98 F 69 16 155/82 95 05/28/17 14:56 69 16 155/82 95 Intake and Output 05/28/17 05/29/17 05/29/17 22:59 06:59 14:59 Intake Total 200 240 Balance 200 240 Intake: Oral 200 240 Other: Voiding Method Toilet # Voids 1 Weight 44.3 kg 44.3 kg Patient Weight 05/30/17 06:59 Weight 44.3 kg General: Revealed a very pleasant 51-year-old female, in no form of respiratory distress. Patient looks a bit frail. Eye: PERRLA, EOMI, no icterus.. Ears, nose, mouth and throat: Moist mucous membranes, normal nasal mucosa. Throat is clear. Neck: The neck is supple, no neck masses, no JVD, no thyromegaly, no stridor. Cardiovascular: Normal S1 and S2, no gallops.. Respiratory: Clear throughout, no crackles nor rhonchi no wheezes. Chest wall examined, no tenderness. No tenderness noted in the thoracic spine. Gastrointestinal: Soft, nontender, no megaly, no rebound, no guarding. Positive bowel sounds. Musculoskeletal: Normal ROM, no tenderness. No tenderness noted in the mid thoracic spine. Neurological: A&O x 3. CN II-XII intact. No focal neurologic deficit was appreciated or noted. Skin: Skin is warm and dry and no rashes or lesions are noted. Psychiatric: Normal affect, normal mood, a bit anxious about her condition. Results - Laboratory Findings CBC and BMP: 05/28/17 03:53 05/28/17 03:53 PT/INR, D-dimer PT 10.0 sec (9.0-12.0) 05/28/17 03:53 INR 1.0 (<1.2) 05/28/17 03:53 Abnormal lab findings: Abnormal Labs 05/28/17 05/28/17 05/28/17 03:53 03:53 03:53 WBC 12.0 H RBC 3.79 L RDW 15.9 H Neutrophils # 8.9 H Sodium 136 L Creatinine 0.50 L AST 12 L Total Creatine Kinase <20 L Total Protein 5.8 L Albumin 3.4 L - Diagnostic Findings Chest x-ray: image reviewed CT scan - chest: image reviewed (Failure to noted in HPI.) Assessment and Plan Plan: Impression: 1 left hilar mass, T7 destructive lesion, consistent with bronchogenic carcinoma unless proven otherwise. 2 severe cephalgia, workup is in progress, being followed by neurology. Her headache may or may not be related to her underlying malignancy. 3 history of smoking, most likely we are dealing with small cell lung cancer. 4 weight loss secondary to underlying malignancy unless proven otherwise. 5 pain upon swallowing/odynophagia, most likely secondary to esophageal involvement by the mediastinal tumor. 6 suspect some mild component of COPD related to chronic tobacco dependence syndrome. However asymptomatic. Recommendation: Patient was scheduled for bronchoscopy and endobronchial possibly transbronchial biopsy of the left upper lobe area based on the findings from the bronchoscopy, further recommendations will follow. Would recommend oncology and radiation oncology consultation on this patient. Time with Patient: Greater than 30
--- NOTE | 2017-05-29 16:14 | P.HPIM ---
History of Present Illness Patient is they [id number] female was seen in neurology clinic was sent in here with after she had a chest x-ray that showed a mass. Patient follows up with her in neurology clinic for the headache has been going on for about 3 weeks patient apparently had uncontrollable headache presently when I evaluated this pretty much well controlled and patient is sitting comfortably on the bed watching TV at that time. And the patient is on multiple medications including Dilaudid added ketorolac patient is also on Fioricet. Patient's headache is in the frontal parietal area patient had underwent extensive workup with MRI and MRA of the head which is essentially within normal limits patient had a CAT scan of the chest with that was done which showed a 6 into 4 cm mass in the left hilum and left upper lobe. Patient was a valid or pulmonology and patient is will undergo bronchoscopy tomorrow patient was also evaluated by ENT. All these consults were placed from ER patient apparently had a 15 pound weight loss. Patient also has a lesion in the vertebrae in the thoracic area since possibility of metastasis. Review of Systems REVIEW OF SYSTEMS: CONSTITUTIONAL: No fever, no malaise, no fatigue. HEENT: No recent visual problems or hearing problems. Denied any sore throat. CARDIOVASCULAR: No chest pain, orthopnea, PND, no palpitations, no syncope. PULMONARY: No shortness of breath, no cough, no hemoptysis. GASTROINTESTINAL: No diarrhea, no nausea, no vomiting, no abdominal pain. Normoactive bowel sounds. NEUROLOGICAL: no weakness, no numbness. HEMATOLOGICAL: Denies any bleeding or petechiae. GENITOURINARY: Denies any burning micturition, frequency, or urgency. MUSCULOSKELETAL/RHEUMATOLOGICAL: Denies any joint pain, swelling, or any muscle pain. ENDOCRINE: Denies any polyuria or polydipsia. The rest of the 14-point review of systems is negative. Past Medical History Past Medical History: Hypertension Additional Past Medical History / Comment(s): Bilateral carpal tunnel syndrome, plantar fasciitis bilateral. Migraines History of Any Multi-Drug Resistant Organisms: None Reported Past Surgical History: Section Additional Past Surgical History / Comment(s): 1986 Past Anesthesia/Blood Transfusion Reactions: No Reported Reaction Past Psychological History: Anxiety, Depression Smoking Status: Current every day smoker Past Alcohol Use History: None Reported Past Drug Use History: None Reported - Past Family History Mother Family Medical History: Cancer Additional Family Medical History / Comment(s): Mother at age 62 from lung ca Father Family Medical History: Hypertension Additional Family Medical History / Comment(s): Father is alive and has hypertension. Brother(s) Additional Family Medical History / Comment(s): Has 2 brothers that are healthy. Patient has one sister that is alive and healthy. She has one sister that suffers spinal cord injury from an accident. Patient has 2 children, one boy that is 22 and healthy, one girl 25 and healthy. Medications and Allergies Home Medications Medication Instructions Recorded Confirmed Type amLODIPine BESYLATE [Norvasc] 5 mg PO DAILY 02/07/15 05/28/17 History oxyCODONE HCL/ACETAMINOPHEN 1 tab PO TID PRN 02/07/15 05/28/17 History [Oxycodone-Acetaminophen 10-325] ALPRAZolam [Xanax] 0.5 mg PO BID PRN 05/08/17 05/28/17 History Butalb/APAP/Caff 50-325-40Mg 2 tab PO Q4H PRN #15 tablet 05/08/17 05/28/17 Rx [Fioricet 50-325-40] Eye Itch Relief Eye Drops 1 drop BOTH EYES DAILY PRN 05/08/17 05/28/17 History Ibuprofen [Motrin] 800 mg PO Q8H PRN 05/08/17 05/28/17 History Nicotine 14Mg/24Hr Patch [Habitrol 1 patch TRANSDERM DAILY PRN 05/08/17 History 14Mg/24Hr Patch] buPROPion HCL [Wellbutrin SR] 150 mg PO DAILY 05/08/17 05/28/17 History Escitalopram [Lexapro] 10 mg PO DAILY 05/19/17 05/28/17 History Pentoxifylline 400 mg PO BID 05/19/17 05/28/17 History SUMAtriptan SUCCINATE [Imitrex] 50 mg PO DAILY PRN 05/28/17 05/28/17 History Allergies Allergy/AdvReac Type Severity Reaction Status Date / Time No Known Allergies Allergy Verified 05/28/17 07:01 Physical Exam Vitals: Vital Signs Temp Pulse Resp BP Pulse Ox 05/29/17 04:00 99.4 F 71 18 160/81 97 05/29/17 00:00 98.0 F 67 18 128/82 95 05/28/17 20:00 98.8 F 66 20 153/74 96 Intake and Output 05/29/17 05/29/17 05/29/17 06:59 14:59 22:59 Intake Total 360 Balance 360 Intake: Oral 360 Other: # Voids 1 2 2 Weight 44.3 kg 44.3 kg Patient Weight 05/30/17 06:59 Weight 44.3 kg PHYSICAL EXAMINATION: GENERAL: The patient is alert and oriented x3, not in any acute distress. Well developed, well nourished. HEENT: Pupils are round and equally reacting to light. EOMI. No scleral icterus. No conjunctival pallor. Normocephalic, atraumatic. No pharyngeal erythema. No thyromegaly. CARDIOVASCULAR: S1 and S2 present. No murmurs, rubs, or gallops. PULMONARY: Chest is clear to auscultation, no wheezing or crackles. ABDOMEN: Soft, nontender, nondistended, normoactive bowel sounds. No palpable organomegaly. MUSCULOSKELETAL: No joint swelling or deformity. EXTREMITIES: No cyanosis, clubbing, or pedal edema. NEUROLOGICAL: Gross neurological examination did not reveal any focal deficits. SKIN: No rashes. Results CBC & Chem 7: 05/28/17 03:53 05/28/17 03:53 Thrombosis Risk Factor Assmnt - Choose All That Apply Any of the Below Risk Factors Present?: Yes Assessment and Plan Plan: #1 headache: Etiology is unclear patient may have a primary headache syndromes, neurology validate the patient although workup is negative. Patient pain is well controlled now. #2 left to have a lung mass highly suspicious for lung cancer with metastatic lesions to the 7 patient will undergo endobronchial biopsy tomorrow #3 odynophagia: Was evaluated by ENT and appears to be secondary to [place] visual involvement by the mediastinal tumor #4 possibility of early stages of COPD although not in acute exacerbation #5 carpal tunnel syndrome #6 hypertension
--- NOTE | 2017-05-29 17:10 | P.PN ---
Subjective Principal diagnosis: Patient is a pleasant 51-year-old female who is being followed by the neurology service for intractable headache. The patient has recently established care in our office for intractable headache 3 weeks. Patient has been tried on IV steroid regimen but denies any improvement. In the office, she was also complaining of sternal pain which was reproducible and quite tender to the touch. Chest x-ray was done which showed a masslike lesion left hilar area. Patient called the office complaining of no relief of her headache and was instructed to go to [facility] emergency room for further evaluation. Patient had MRI of the brain and neck which were both normal. Patient had MRI a of the neck which showed no significant stenosis or any evidence of dissection. Carotid Dopplers were done which showed no hemodynamically significant stenosis. Patient reports her headache is tolerable at this time. She rates it at a 7 out of 10. She is currently receiving Dilaudid as needed for pain. At the time of my evaluation she is resting comfortably in bed and appears to be in no acute distress. Objective - Vital Signs Vital signs: Vital Signs Temp 99.4 F 05/29/17 04:00 Pulse 71 05/29/17 04:00 Resp 18 05/29/17 04:00 BP 160/81 05/29/17 04:00 Pulse Ox 97 05/29/17 04:00 Intake & Output 05/28/17 05/29/17 05/29/17 18:59 06:59 18:59 Intake Total 200 360 Balance 200 360 Weight 46.72 kg 44.3 kg 44.3 kg Intake: Oral 200 360 Other: Voiding Method Toilet # Voids 1 1 2 - Exam PHYSICAL EXAM: GENERAL APPEARANCE: Patient is a well-developed, female who appears to be in no acute distress. HEENT: Normocephalic, atraumatic, no facial asymmetry is seen. Neck is supple with no masses felt. CARDIOVASCULAR: Regular rate and rhythm. ABDOMEN: Nontender, nondistended. EXTREMITIES: Show no edema or clubbing. NEUROLOGICAL EXAM: Patient is awake, alert, and oriented 3. Speech and language are normal. Strength is full in all 4 extremities. Sensory exam to light touch is normal in all 4 extremities. No facial asymmetry is seen on cranial nerve testing. No seizures or tremors noted. - Labs CBC & Chem 7: 05/28/17 03:53 05/28/17 03:53 Assessment and Plan Plan: Impression: 1. Intractable headache 2. Atypical chest pain 3. Lung mass 4. Dysphagia 5. Neck pain 6. Tobacco dependence Recommendation: Patient's headache continues but seems to be somewhat relieved with Dilaudid. As mentioned above, MRI MRA of the brain were normal. I had a lengthy discussion with her regarding dysphagia and results of her chest x-ray and lung mass. Patient is scheduled for bronchoscopy with biopsy tomorrow morning. CT angio of the chest was done which showed large left upper lobe and mediastinal mass consistent with malignancy. CT also showed destructive changes of T7 vertebra consistent with metastatic disease. Patient has had significant weight loss over the past few weeks. Pulmonology's been consulted. I recommend consultation with oncology. I recommend speech therapy for dysphagia. Continue Dilaudid as needed. Patient has Fioricet at home for an abortive headache therapy. Prognosis is guarded. I will continue to follow with you. Further recommendations to follow. I performed an examination of the patient and discussed the management with the REGULATORY ANALYST. I have reviewed the REGULATORY ANALYST notes and agree with the findings and plan of care.
[2017-05-29] MEDS: KETOROLAC 30 MG/ML 1 ML VIAL IVP PRN (20:24)
[2017-05-29] MEDS: FAMOTIDINE 20 MG TAB PO SCH (20:25)
[2017-05-29] MEDS: ALPRAZolam 0.5 MG TAB PO PRN (20:25)
[2017-05-30] MEDS: BUTALB/APAP/CAFF 50-325-40MG TAB PO PRN ×6 (00:07→22:08)
[2017-05-30] MEDS: ONDANSETRON 4 MG/2 ML VIAL IVP PRN (03:25)
[2017-05-30] MEDS: HYDROmorphone 1 MG/ML 1 ML SYRINGE IVP PRN ×7 (03:25→20:47)
[2017-05-30] MEDS: KETOROLAC 30 MG/ML 1 ML VIAL IVP PRN ×3 (03:26→16:50)
[2017-05-30 06:49] LABS: CH 31.9; CHCM 33.8; HDW 3.24; HGB 12.5 gm/dL (11.4-16.0); MCH 31.2 pg (25.0-35.0); MCHC 32.8 g/dL (31.0-37.0); MCV 95.1 fL (80.0-100.0); RDW 15.5 % (11.5-15.5); WBC 11.7 k/uL (3.8-10.6)
[2017-05-30 06:59] LABS: Anion Gap 9 mmol/L; Blood Urea Nitrogen 11 mg/dL (7-17); Calcium 9.1 mg/dL (8.4-10.2); Carbon Dioxide 30 mmol/L (22-30); Chloride 93 mmol/L (98-107); Glucose 99 mg/dL (74-99); Non-African American GFR(MDRD) >60 (>60 ml/min/1.73 sqM); Potassium 4.4 mmol/L (3.5-5.1); Sodium 132 mmol/L (137-145)
[2017-05-30] MEDS: FAMOTIDINE 20 MG TAB PO SCH ×2 (07:35→20:46)
[2017-05-30] MEDS: PENTOXIFYLLINE 400 MG TABLET.ER PO SCH ×2 (07:36→20:46)
[2017-05-30] MEDS: ALPRAZolam 0.5 MG TAB PO PRN ×2 (08:01→22:11)
[2017-05-30] MEDS: oxyCODONE-APAP 10-325MG 1 EACH TAB PO PRN ×3 (08:11→23:33)
[2017-05-30] MEDS ORDERED: PROPOFOL 10 MG/ML 20 ML VIAL IV ONE (11:57)
[2017-05-30] MEDS ORDERED: LIDOCAINE 1% INJ 10MG/ML (20 ML MDV) ONE (11:57)
[2017-05-30] MEDS ORDERED: LACTATED RINGERS 1,000 ML IV ONE (12:10)
[2017-05-30] MEDS ORDERED: THROMBIN (BOVINE) 5,000 UNIT VIAL MISCELLANE ONE (12:44)
[2017-05-30] MEDS ORDERED: LIDOCAINE 2% INJ 20 MG/ML INTRATRACH ONE (12:56)
[2017-05-30] MEDS: buPROPion SR 150 MG TABLET.ER PO SCH (13:13)
[2017-05-30] MEDS: ENOXAPARIN 40 MG/0.4 ML SYRINGE SQ SCH (13:13)
[2017-05-30] MEDS: amLODIPine 5 MG TAB PO SCH (13:14)
[2017-05-30] MEDS: ESCITALOPRAM 10 MG TAB PO SCH (13:14)
--- NOTE | 2017-05-30 15:00 | P.PN ---
Subjective 51-year-old female admitted for headache. Patient is also found to have mass which was biopsied and the registration scheduling specialist recommending monitoring 1 more day because of excessive bleeding during bronchoscopy. Patient is taking too much of Dilaudid and excessively drowsy I believe patient has a narcotic seeking behavior she stills says she has headache but the patient is drowsy unable to complete the conversation comfortable. We'll cut down the Dilaudid frequency. Patient denied any fever, chills, nausea, vomiting, shortness of breath continues to complain of headache Objective - Vital Signs Vital signs: Vital Signs Temp 97.1 F L 05/30/17 13:30 Pulse 75 05/30/17 14:00 Resp 16 05/30/17 14:00 BP 121/80 05/30/17 14:00 Pulse Ox 95 05/30/17 14:00 Intake & Output 05/29/17 05/30/17 05/30/17 18:59 06:59 18:59 Intake Total 570 240 Output Total 50 Balance 570 190 Weight 44.3 kg 45 kg Intake: Oral 570 240 Output: Estimated Blood Loss 50 Other: Voiding Method Toilet Toilet Toilet # Voids 2 1 2 # Emeses 1 - Exam PHYSICAL EXAMINATION: GENERAL: The patient is drowsy and oriented x3, not in any acute distress. Well developed, well nourished. HEENT: Pupils are round and equally reacting to light. EOMI. No scleral icterus. No conjunctival pallor. Normocephalic, atraumatic. No pharyngeal erythema. No thyromegaly. CARDIOVASCULAR: S1 and S2 present. No murmurs, rubs, or gallops. PULMONARY: Chest is clear to auscultation, no wheezing or crackles. ABDOMEN: Soft, nontender, nondistended, normoactive bowel sounds. No palpable organomegaly. MUSCULOSKELETAL: No joint swelling or deformity. EXTREMITIES: No cyanosis, clubbing, or pedal edema. NEUROLOGICAL: Gross neurological examination did not reveal any focal deficits. SKIN: No rashes. - Labs CBC & Chem 7: 05/30/17 05:59 05/30/17 05:59 Labs: Abnormal Lab Results - Last 24 Hours (Table) 05/30/17 05/30/17 Range/Units 05:59 05:59 WBC 11.7 H (3.8-10.6) k/uL Sodium 132 L (137-145) mmol/L Chloride 93 L (98-107) mmol/L Creatinine 0.50 L (0.52-1.04) mg/dL Assessment and Plan Plan: #1 headache: Etiology is unclear patient may have a primary headache syndromes, neurology following the patient. Patient pain is well controlled now. 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, patient is status post endobronchial biopsy #3 odynophagia: Was evaluated by ENT and appears to be secondary to [place] visual involvement by the mediastinal tumor #4 possibility of early stages of COPD although not in acute exacerbation #5 carpal tunnel syndrome #6 hypertension
--- NOTE | 2017-05-30 15:09 | P.PN ---
Subjective Principal diagnosis: Patient is a pleasant 51-year-old female who is being followed by the neurology service for intractable headache. The patient has recently established care in our office for intractable headache 3 weeks. Patient has been tried on IV steroid regimen but denies any improvement. In the office, she was also complaining of sternal pain which was reproducible and quite tender to the touch. Chest x-ray was done which showed a masslike lesion left hilar area. Patient called the office complaining of no relief of her headache and was instructed to go to [facility] emergency room for further evaluation. Patient had MRI of the brain and neck which were both normal. Patient had MRI a of the neck which showed no significant stenosis or any evidence of dissection. Carotid Dopplers were done which showed no hemodynamically significant stenosis. Patient reports her headache is tolerable at this time. She rates it at a 7 out of 10. She is currently receiving Dilaudid as needed for pain. At the time of my evaluation she is resting comfortably in bed and appears to be in no acute distress. 05/30/2017 Patient is a pleasant 51-year-old female who is being followed by the neurology service for intractable headache. Patient states headache is worse today than yesterday. She is getting IV Dilaudid for pain. Patient was found to have left lung mass in the hilar area. She underwent bronchoscopy with lung biopsy today. Patient appears to be groggy from sedation. Patient states she ate well today. She reports she had been up ambulating in the room. At the time of my evaluation, patient's resting comfortably in bed and appears to be in no acute distress. Objective - Vital Signs Vital signs: Vital Signs Temp 97.1 F L 05/30/17 13:30 Pulse 75 05/30/17 14:00 Resp 16 05/30/17 14:00 BP 121/80 05/30/17 14:00 Pulse Ox 95 05/30/17 14:00 Intake & Output 05/29/17 05/30/17 05/30/17 18:59 06:59 18:59 Intake Total 570 240 Output Total 50 Balance 570 190 Weight 44.3 kg 45 kg Intake: Oral 570 240 Output: Estimated Blood Loss 50 Other: Voiding Method Toilet Toilet Toilet # Voids 2 1 2 # Emeses 1 - Exam PHYSICAL EXAM: GENERAL APPEARANCE: Patient is a well-developed, female who appears to be in no acute distress. HEENT: Normocephalic, atraumatic, no facial asymmetry is seen. Neck is supple with no masses felt. CARDIOVASCULAR: Regular rate and rhythm. ABDOMEN: Nontender, nondistended. EXTREMITIES: Show no edema or clubbing. NEUROLOGICAL EXAM: Patient is awake, alert, and oriented 3. Speech and language are normal. Strength is full in all 4 extremities. Sensory exam is normal to light touch in all 4 extremities. No facial asymmetry seen on cranial nerve testing. No tremors or seizure-like activity is seen. - Labs CBC & Chem 7: 05/30/17 05:59 05/30/17 05:59 Labs: Abnormal Lab Results - Last 24 Hours (Table) 05/30/17 05/30/17 Range/Units 05:59 05:59 WBC 11.7 H (3.8-10.6) k/uL Sodium 132 L (137-145) mmol/L Chloride 93 L (98-107) mmol/L Creatinine 0.50 L (0.52-1.04) mg/dL Assessment and Plan Plan: Impression: 1. Intractable headache 2. Atypical chest pain 3. Lung mass 4. Dysphagia 5. Neck pain 6. Tobacco dependence Recommendation: Patient's headache continues but seems to be somewhat relieved with Dilaudid. As mentioned above, MRI MRA of the brain were normal. Patient had bronchoscopy with biopsy this morning. As you recall, CT angio of the chest was done which showed large left upper lobe and mediastinal mass consistent with malignancy. CT also showed destructive changes of T7 vertebra consistent with metastatic disease. Patient has had significant weight loss over the past few weeks. Prognosis is guarded. Treatment plans per pulmonology and oncology. I will continue to follow with you. Further recommendations to follow. I performed an examination of the patient and discussed the management with the FARM HELPER. I have reviewed the FARM HELPER notes and agree with the findings and plan of care.
[2017-05-30 15:26] VITALS: RESP 18
--- NOTE | 2017-05-30 15:57 | P.PN ---
Subjective Principal diagnosis: Severe cephalgia, left hilar mass, suspicious for bronchogenic carcinoma. History of present illness: This is a 51-year-old female, heavy smoker, primarily a patient with Dr. Choudhary, patient was admitted yesterday on 05/28/2017 with severe persistent headache for the last 3 weeks. Patient never had a headache lasting that long. Described the headache as mostly in the right frontal parietal region, constant pressure and pain, throbbing at times. Tried on steroids, but no improvement. Patient was seen by her primary care physician for her headaches, and no specific cause for her headache was discovered. Patient came into the ER yesterday complaining of headaches, and since admission she had an extensive workup for her headaches including head and neck MRI/MRA, neck MRI, brain MRI, and these were all nondiagnostic. Part of the workup in the ER included a chest x-ray which I reviewed last night, and I felt certainly that the patient has a left hilar mass. I ordered a CT of the chest to be done this morning. Indeed her CT of the chest did show a large left upper lobe and mediastinal mass consistent with malignancy. The mass seems to be encasing the left pulmonary artery and it is adjacent to the aortic arch. Measured 64 cm and extending from the left hilum into the left upper lobe. There was also evidence of destructive changes noted in T7 vertebral consistent with metastatic disease. Patient has been complaining of 15 pound weight loss over the last couple of months, generalized weakness, fatigue, malaise, and again for the last few weeks the patient has been complaining of severe right-sided headaches. Patient has also been complaining of difficulty swallowing and pain when she swallows. Hence her oral intake has been very poor because of the pain upon swallowing. For some reason patient was seen by ENT for odynophagia symptoms, and she underwent direct laryngoscope he which is definitely nondiagnostic. At any rate after evaluating the patient, I recommended that the patient undergoes bronchoscopy and endobronchial or possibly transbronchial biopsy of the left upper lobe mass which seems to be extending from the left hilum all the way up to the left upper lobe. Patient was made aware that this is a malignant lesion unless proven otherwise. And considering the distal duct of lesion of thoracic vertebra #7 this is consistent with metastatic lung carcinoma, however a tissue diagnosis would have to be made. Patient was reevaluated today on 05/30/2017, doing well from the pulmonary perspective, underwent a bronchoscopy and endobronchial biopsy, refer to the full operative bronchoscopy report. Patient had only one biopsy taken brushings and washings from the left upper lobe were taken. Patient was bleeding easily from the biopsy hence no more biopsies were taken except 1. Patient is relatively asymptomatic except for the fact that she continues to have severe headache. And that being addressed by other consultants. CBC was noted basic metabolic profile was noted. And I discussed her condition with her and with her [id number] at bedside. I also discussed the bronchoscopy findings with both. And with the admitting physician. Objective - Vital Signs Vital signs: Vital Signs Temp 97.0 F L 05/30/17 15:24 Pulse 70 05/30/17 15:25 Resp 18 05/30/17 15:25 BP 133/83 05/30/17 15:24 Pulse Ox 96 05/30/17 15:24 Intake & Output 05/29/17 05/30/17 05/30/17 18:59 06:59 18:59 Intake Total 570 500 Output Total 450 Balance 570 50 Weight 44.3 kg 45 kg Intake: Oral 570 500 Output: Urine 400 Estimated Blood Loss 50 Other: Voiding Method Toilet Toilet Toilet # Voids 2 1 1 # Emeses 1 - Exam General: Revealed a very pleasant 51-year-old female, in no form of respiratory distress. Patient looks a bit frail. Eye: PERRLA, EOMI, no icterus.. Ears, nose, mouth and throat: Moist mucous membranes, normal nasal mucosa. Throat is clear. Neck: The neck is supple, no neck masses, no JVD, no thyromegaly, no stridor. Cardiovascular: Normal S1 and S2, no gallops.. Respiratory: Clear throughout, no crackles nor rhonchi no wheezes. Chest wall examined, no tenderness. No tenderness noted in the thoracic spine. Gastrointestinal: Soft, nontender, no megaly, no rebound, no guarding. Positive bowel sounds. Musculoskeletal: Normal ROM, no tenderness. No tenderness noted in the mid thoracic spine. Neurological: A&O x 3. CN II-XII intact. No focal neurologic deficit was appreciated or noted. Skin: Skin is warm and dry and no rashes or lesions are noted. Psychiatric: Normal affect, normal mood, a bit anxious about her condition. - Labs CBC & Chem 7: 05/30/17 05:59 05/30/17 05:59 Labs: Abnormal Lab Results - Last 24 Hours (Table) 05/30/17 05/30/17 Range/Units 05:59 05:59 WBC 11.7 H (3.8-10.6) k/uL Sodium 132 L (137-145) mmol/L Chloride 93 L (98-107) mmol/L Creatinine 0.50 L (0.52-1.04) mg/dL Assessment and Plan Plan: Impression: 1 left hilar mass, T7 destructive lesion, consistent with bronchogenic carcinoma unless proven otherwise. 2 severe cephalgia, workup is in progress, being followed by neurology. Her headache may or may not be related to her underlying malignancy. 3 history of smoking, most likely we are dealing with small cell lung cancer. 4 weight loss secondary to underlying malignancy unless proven otherwise. 5 pain upon swallowing/odynophagia, most likely secondary to esophageal involvement by the mediastinal tumor. 6 suspect some mild component of COPD related to chronic tobacco dependence syndrome. However asymptomatic. 7 status post bronchoscopy and endobronchial biopsy of left upper lobe tumor encasing the left upper lobe bronchus. Complicated by bleeding, bit more than expected normally. Recommendation: I explained to the patient and her [id number] the findings on the bronchoscopy, results will not be available before next Friday at least, her issues of headache is being addressed by many physicians on the case, from my perspective patient could be considered for discharge planning and follow-up on outpatient basis. Time with Patient: Less than 30
--- NOTE | 2017-05-30 16:35 | PCN ---
PROCEDURE NOTE OPERATIVE REPORT: Bronchoscopy, endobronchial biopsy of the left upper lobe bronchus, brushings, washings from the left upper lobe area. PREOPERATIVE DIAGNOSIS: Lung mass suggestive of bronchogenic carcinoma. POSTOPERATIVE DIAGNOSIS: Lung mass suggestive of bronchogenic carcinoma. PROCEDURE: The patient was prepared according to the bronchoscopy protocol. The patient was placed in the supine position in the bronchoscopy suite, O2 was applied via nasal cannula, and we monitored her O2 saturations continuously. Blood pressure was intermittently monitored and cardiac rhythm were continuously monitored. After adequate IV conscious sedation, which was used for anesthesia, the patient was in a supine position, and the right naris was anesthetized using 2 mL of 1% lidocaine. Then, the tip of the bronchoscope was advanced through the right naris down to the area of the vocal cords, which were noted to be patent. Examination of the bronchoscope was advanced to the vocal cords, and examination was done of the trachea, julia, right upper lobe, right middle lobe, right lower lobe, left upper lobe and lingula as well as the left lower lobe. No evidence of any significant pathology except the area of the left upper lobe bronchus was noted to be extremely extrinsically narrowed, and almost near complete occlusion of the anterior apical segment of the left upper lobe was noted. There was a definite extrinsic compression on the left upper lobe bronchus, and 1 biopsy was done from the anterior apical segment of the left upper lobe, however, the patient showed significant bleeding. It took me at least 50 minutes to control the bleeding and roughly about 50 mL of blood were noted and suctioning cup. Thrombin was applied at the site of the bleeding. Then brushings were done of the area, and washings from the left upper lobe were done. Normal biopsies were done. Procedure was well tolerated except for the bleeding noted, no more biopsies were done. The patient was sent back to her room in stable condition after complete resolution of the bleeding. MMODL / IJN: [id number] /
[2017-05-30] MEDS: NICOTINE 14MG/24HR PATCH TRANSDERM PRN (22:08)
[2017-05-31] MEDS: KETOROLAC 30 MG/ML 1 ML VIAL IVP PRN ×3 (00:38→14:45)
[2017-05-31] MEDS: HYDROmorphone 1 MG/ML 1 ML SYRINGE IVP PRN ×3 (03:15→11:47)
[2017-05-31] MEDS: ENOXAPARIN 40 MG/0.4 ML SYRINGE SQ SCH (07:52)
[2017-05-31] MEDS: FAMOTIDINE 20 MG TAB PO SCH (07:53)
[2017-05-31] MEDS: PENTOXIFYLLINE 400 MG TABLET.ER PO SCH (07:53)
[2017-05-31] MEDS: buPROPion SR 150 MG TABLET.ER PO SCH (07:53)
[2017-05-31] MEDS: amLODIPine 5 MG TAB PO SCH (07:53)
[2017-05-31] MEDS: ESCITALOPRAM 10 MG TAB PO SCH (07:53)
[2017-05-31] MEDS: BUTALB/APAP/CAFF 50-325-40MG TAB PO PRN (08:03)
[2017-05-31 11:08] VITALS: BP 119/88; PULSE 76; TEMP 98.3
[2017-05-31] MEDS: oxyCODONE-APAP 10-325MG 1 EACH TAB PO PRN (11:08)
[2017-05-31] MEDS: ALPRAZolam 0.5 MG TAB PO PRN (11:08)
--- NOTE | 2017-05-31 11:22 | P.PN ---
Subjective Principal diagnosis: Severe cephalgia, left hilar mass, suspicious for bronchogenic carcinoma. History of present illness: This is a 51-year-old female, heavy smoker, primarily a patient with Dr. Choudhary, patient was admitted yesterday on 05/28/2017 with severe persistent headache for the last 3 weeks. Patient never had a headache lasting that long. Described the headache as mostly in the right frontal parietal region, constant pressure and pain, throbbing at times. Tried on steroids, but no improvement. Patient was seen by her primary care physician for her headaches, and no specific cause for her headache was discovered. Patient came into the ER yesterday complaining of headaches, and since admission she had an extensive workup for her headaches including head and neck MRI/MRA, neck MRI, brain MRI, and these were all nondiagnostic. Part of the workup in the ER included a chest x-ray which I reviewed last night, and I felt certainly that the patient has a left hilar mass. I ordered a CT of the chest to be done this morning. Indeed her CT of the chest did show a large left upper lobe and mediastinal mass consistent with malignancy. The mass seems to be encasing the left pulmonary artery and it is adjacent to the aortic arch. Measured 64 cm and extending from the left hilum into the left upper lobe. There was also evidence of destructive changes noted in T7 vertebral consistent with metastatic disease. Patient has been complaining of 15 pound weight loss over the last couple of months, generalized weakness, fatigue, malaise, and again for the last few weeks the patient has been complaining of severe right-sided headaches. Patient has also been complaining of difficulty swallowing and pain when she swallows. Hence her oral intake has been very poor because of the pain upon swallowing. For some reason patient was seen by ENT for odynophagia symptoms, and she underwent direct laryngoscope he which is definitely nondiagnostic. At any rate after evaluating the patient, I recommended that the patient undergoes bronchoscopy and endobronchial or possibly transbronchial biopsy of the left upper lobe mass which seems to be extending from the left hilum all the way up to the left upper lobe. Patient was made aware that this is a malignant lesion unless proven otherwise. And considering the distal duct of lesion of thoracic vertebra #7 this is consistent with metastatic lung carcinoma, however a tissue diagnosis would have to be made. Patient was reevaluated today on 05/30/2017, doing well from the pulmonary perspective, underwent a bronchoscopy and endobronchial biopsy, refer to the full operative bronchoscopy report. Patient had only one biopsy taken brushings and washings from the left upper lobe were taken. Patient was bleeding easily from the biopsy hence no more biopsies were taken except 1. Patient is relatively asymptomatic except for the fact that she continues to have severe headache. And that being addressed by other consultants. CBC was noted basic metabolic profile was noted. And I discussed her condition with her and with her [id number] at bedside. I also discussed the bronchoscopy findings with both. And with the admitting physician. Reevaluated today on 05/31/2017, patient continues to have lots of aches and pains, continues to have severe headaches, pulmonary-cordero no active pulmonary symptoms. No hemoptysis, no chest pain, no cough, no wheezing, no shortness of breath. Considering the diagnosis is pending, and considering that we are most likely dealing with bronchogenic carcinoma, I will recommend at least early evaluation by oncology so that she can follow-up with him on outpatient basis easily once a tissue diagnosis becomes available. Hence a consultation with oncology was initiated, patient may even have to be seen by radiation oncology since the tumor is quite large and seems to be encasing the left upper lobe bronchus with almost near complete obstruction. Objective - Vital Signs Vital signs: Vital Signs Temp 98.3 F 05/31/17 11:07 Pulse 76 05/31/17 11:07 Resp 18 05/31/17 11:07 BP 119/88 05/31/17 11:07 Pulse Ox 97 05/31/17 11:07 Intake & Output 05/30/17 05/31/17 05/31/17 18:59 06:59 18:59 Intake Total 900 20 Output Total 450 Balance 450 20 Weight 44.5 kg Intake: IV 20 0.9 20 Oral 900 Output: Urine 400 Estimated Blood Loss 50 Other: Voiding Method Toilet Toilet Toilet # Voids 1 # Emeses 1 - Exam General: Revealed a very pleasant 51-year-old female, in no form of respiratory distress. Patient looks a bit frail. Eye: PERRLA, EOMI, no icterus.. Ears, nose, mouth and throat: Moist mucous membranes, normal nasal mucosa. Throat is clear. Neck: The neck is supple, no neck masses, no JVD, no thyromegaly, no stridor. Cardiovascular: Normal S1 and S2, no gallops.. Respiratory: Clear throughout, no crackles nor rhonchi no wheezes. Chest wall examined, no tenderness. No tenderness noted in the thoracic spine. Gastrointestinal: Soft, nontender, no megaly, no rebound, no guarding. Positive bowel sounds. Musculoskeletal: Normal ROM, no tenderness. No tenderness noted in the mid thoracic spine. Neurological: A&O x 3. CN II-XII intact. No focal neurologic deficit was appreciated or noted. Skin: Skin is warm and dry and no rashes or lesions are noted. Psychiatric: Normal affect, normal mood, a bit anxious about her condition. - Labs CBC & Chem 7: 05/30/17 05:59 05/30/17 05:59 Labs: Microbiology - Last 24 Hours (Table) 05/30/17 12:30 Gram Stain - Preliminary Bronchial Washings - Left Bronchial Washings Culture - Preliminary Assessment and Plan Plan: Impression: 1 left hilar mass, T7 destructive lesion, consistent with bronchogenic carcinoma unless proven otherwise. 2 severe cephalgia, workup is in progress, being followed by neurology. Her headache may or may not be related to her underlying malignancy. 3 history of smoking, most likely we are dealing with small cell lung cancer. 4 weight loss secondary to underlying malignancy unless proven otherwise. 5 pain upon swallowing/odynophagia, most likely secondary to esophageal involvement by the mediastinal tumor. 6 suspect some mild component of COPD related to chronic tobacco dependence syndrome. However asymptomatic. 7 status post bronchoscopy and endobronchial biopsy of left upper lobe tumor encasing the left upper lobe bronchus. Complicated by bleeding, bit more than expected normally. Recommendation: Continue present treatment plan, patient is to be seen by oncology hopefully today, and she will set up outpatient appointment with him, if the patient is discharged home over the weekend, I can see her in the office for follow-up on her results from the bronchial biopsy. Time with Patient: Less than 30
[2017-05-31] MEDS: ONDANSETRON 4 MG/2 ML VIAL IVP PRN (11:52)
--- NOTE | 2017-05-31 15:49 | P.PN ---
Subjective Principal diagnosis: Patient is a pleasant 51-year-old female who is being followed by the neurology service for intractable headache. The patient has recently established care in our office for intractable headache 3 weeks. Patient has been tried on IV steroid regimen but denies any improvement. In the office, she was also complaining of sternal pain which was reproducible and quite tender to the touch. Chest x-ray was done which showed a masslike lesion left hilar area. Patient called the office complaining of no relief of her headache and was instructed to go to [facility] emergency room for further evaluation. Patient had MRI of the brain and neck which were both normal. Patient had MRI a of the neck which showed no significant stenosis or any evidence of dissection. Carotid Dopplers were done which showed no hemodynamically significant stenosis. Patient reports her headache is tolerable at this time. She rates it at a 7 out of 10. She is currently receiving Dilaudid as needed for pain. At the time of my evaluation she is resting comfortably in bed and appears to be in no acute distress. 05/30/2017 Patient is a pleasant 51-year-old female who is being followed by the neurology service for intractable headache. Patient states headache is worse today than yesterday. She is getting IV Dilaudid for pain. Patient was found to have left lung mass in the hilar area. She underwent bronchoscopy with lung biopsy today. Patient appears to be groggy from sedation. Patient states she ate well today. She reports she had been up ambulating in the room. At the time of my evaluation, patient's resting comfortably in bed and appears to be in no acute distress. 05/31/2017 Patient is a pleasant 51-year-old female is being followed by the neurology service for intractable headache. Patient states headache is 6 out of 10 today. Patient was found to have lung mass in the left hilar area. Patient underwent bronchoscopy with biopsy and most likely this is malignant. Final biopsy results are pending. Considering this is most likely bronchogenic carcinoma, a consult to oncology was made. At the time of my evaluation, patient's resting comfortably in bed and appears to be in no acute distress. Patient continues to complain of severe headache at times. Patient states Fioricet is not helping. Objective - Vital Signs Vital signs: Vital Signs Temp 98.3 F 05/31/17 11:07 Pulse 76 05/31/17 11:07 Resp 18 05/31/17 11:07 BP 119/88 05/31/17 11:07 Pulse Ox 97 05/31/17 11:07 Intake & Output 05/30/17 05/31/17 05/31/17 18:59 06:59 18:59 Intake Total 900 20 Output Total 450 Balance 450 20 Weight 44.5 kg Intake: IV 20 0.9 20 Oral 900 Output: Urine 400 Estimated Blood Loss 50 Other: Voiding Method Toilet Toilet Toilet # Voids 1 # Emeses 1 - Exam PHYSICAL EXAM: GENERAL APPEARANCE: Patient is a well-developed, female who appears to be in no acute distress. HEENT: Normocephalic, atraumatic, no facial asymmetry is seen. Neck is supple with no masses felt. CARDIOVASCULAR: Regular rate and rhythm. ABDOMEN: Nontender, nondistended. EXTREMITIES: Show no edema or clubbing. NEUROLOGICAL EXAM: Patient is awake, alert, and oriented 3. Speech and language are normal. Strength is full in all 4 extremities. Sensory exam is normal to light touch in all 4 extremities. No facial asymmetry seen on cranial nerve testing. No tremors or seizure-like activity is seen. - Labs CBC & Chem 7: 05/30/17 05:59 05/30/17 05:59 Labs: Microbiology - Last 24 Hours (Table) 05/30/17 12:30 Gram Stain - Preliminary Bronchial Washings - Left Bronchial Washings Culture - Preliminary Assessment and Plan Plan: Impression: 1. Intractable headache 2. Atypical chest pain 3. Lung mass 4. Dysphagia 5. Neck pain 6. Tobacco dependence Recommendation: Patient's headache continues but seems to be somewhat relieved with Dilaudid. As mentioned above, MRI MRA of the brain were normal. As mentioned above, patient states Fioricet does not help with her headaches. I will order Imitrex 100 mg when necessary. Patient had bronchoscopy with biopsy yesterday which appears to be bronchogenic carcinoma. As you recall, CT angio of the chest was done which showed large left upper lobe and mediastinal mass consistent with malignancy. CT also showed destructive changes of T7 vertebra consistent with metastatic disease. Patient has had significant weight loss over the past few weeks. Oncology has been consulted. Prognosis is guarded. Treatment plans per pulmonology and oncology. Patient is stable for discharge from neurology standpoint. I will continue to follow with you. Further recommendations to follow. I performed an examination of the patient and discussed the management with the ELECTRICAL SUPERINTENDENT. I have reviewed the ELECTRICAL SUPERINTENDENT notes and agree with the findings and plan of care.
--- NOTE | 2017-05-31 15:52 | P.DS ---
Providers Date of admission: 05/28/17 03:59 Attending physician: Tushar Lora Consults: 05/28/17 03:58 Consult Physician Routine Consulting Provider: Leigha Morales Consult Reason/Comments: headache Do you want consulting provider notified?: Yes, Notify in am 05/28/17 12:53 Consult Physician Routine Consulting Provider: Merlin Langston Consult Reason/Comments: severe painful swallowing with severe headache Do you want consulting provider notified?: Yes 05/28/17 18:22 Consult Physician Routine Consulting Provider: Skyler Bell Consult Reason/Comments: hilar mass, poss met disease Do you want consulting provider notified?: Yes 05/31/17 10:19 Consult Physician Routine Consulting Provider: Lalo Timmons Consult Reason/Comments: presumptive lung ca,path pending Do you want consulting provider notified?: Yes, Notify in am Primary care physician: Marcelo Conteh [facility] Course: 51-year-old female admitted for headache. 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 Patient is taking too much of Dilaudid and excessively drowsy I believe patient has a narcotic seeking behavior. Patient's hemoglobin remained stable and cleared for discharge from pulmonary perspective, patient the will be discharged with follow-up with Dr. Hancock as an outpatient. Patient's biopsy results and to be followed as an outpatient. Management of headache will be left to neurology service GENERAL: The patient is drowsy and oriented x3, not in any acute distress. Well developed, well nourished. HEENT: Pupils are round and equally reacting to light. EOMI. No scleral icterus. No conjunctival pallor. Normocephalic, atraumatic. No pharyngeal erythema. No thyromegaly. CARDIOVASCULAR: S1 and S2 present. No murmurs, rubs, or gallops. PULMONARY: Chest is clear to auscultation, no wheezing or crackles. ABDOMEN: Soft, nontender, nondistended, normoactive bowel sounds. No palpable organomegaly. MUSCULOSKELETAL: No joint swelling or deformity. EXTREMITIES: No cyanosis, clubbing, or pedal edema. NEUROLOGICAL: Gross neurological examination did not reveal any focal deficits. SKIN: No rashes. #1 headache: Etiology is unclear patient may have a primary headache syndromes, neurology following the patient. Patient pain is well controlled now. 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, patient is status post endobronchial biopsy #3 odynophagia: Was evaluated by ENT and appears to be secondary to involvement by the mediastinal tumor #4 possibility of early stages of COPD although not in acute exacerbation #5 carpal tunnel syndrome #6 hypertension 7 mild hyponatremia patient may have a competent of SIADH, repeat basic metabolic profile testing is warranted as an outpatient in 3-4 days Patient Condition at Discharge: Stable Plan - Discharge Summary New Discharge Prescriptions: New SUMAtriptan SUCCINATE [Imitrex] 100 mg PO DIRECTED #9 tablet No Action amLODIPine BESYLATE [Norvasc] 5 mg PO DAILY oxyCODONE HCL/ACETAMINOPHEN [Oxycodone-Acetaminophen 10-325] 1 tab PO TID PRN PRN Reason: pain Nicotine 14Mg/24Hr Patch [Habitrol 14Mg/24Hr Patch] 1 patch TRANSDERM DAILY PRN PRN Reason: Nicotine Cravings Ibuprofen [Motrin] 800 mg PO Q8H PRN PRN Reason: Pain buPROPion HCL [Wellbutrin SR] 150 mg PO DAILY Eye Itch Relief Eye Drops 1 drop BOTH EYES DAILY PRN PRN Reason: Itchy Eyes ALPRAZolam [Xanax] 0.5 mg PO BID PRN PRN Reason: Anxiety Butalb/APAP/Caff 50-325-40Mg [Fioricet 50-325-40] 2 tab PO Q4H PRN #15 tablet PRN Reason: Pain Escitalopram [Lexapro] 10 mg PO DAILY Pentoxifylline 400 mg PO BID Discharge Medication List amLODIPine BESYLATE [Norvasc] 5 mg PO DAILY 02/07/15 [History] oxyCODONE HCL/ACETAMINOPHEN [Oxycodone-Acetaminophen 10-325] 1 tab PO TID PRN [History] ALPRAZolam [Xanax] 0.5 mg PO BID PRN 05/08/17 [History] Butalb/APAP/Caff 50-325-40Mg [Fioricet 50-325-40] 2 tab PO Q4H PRN #15 tablet [Rx] Eye Itch Relief Eye Drops 1 drop BOTH EYES DAILY PRN 05/08/17 [History] Ibuprofen [Motrin] 800 mg PO Q8H PRN 05/08/17 [History] Nicotine 14Mg/24Hr Patch [Habitrol 14Mg/24Hr Patch] 1 patch TRANSDERM DAILY PRN 05/08/17 [History] buPROPion HCL [Wellbutrin SR] 150 mg PO DAILY 05/08/17 [History] Escitalopram [Lexapro] 10 mg PO DAILY 05/19/17 [History] Pentoxifylline 400 mg PO BID 05/19/17 [History] SUMAtriptan SUCCINATE [Imitrex] 100 mg PO DIRECTED #9 tablet 05/31/17 [Rx] Follow up Appointment(s)/Referral(s): Skyler Bell MD [STAFF PHYSICIAN] - 1 Week Beto Hancock MD [STAFF PHYSICIAN] - 1 Week Leigha Morales MD [STAFF PHYSICIAN] - 1 Week (In 1 - 2 weeks) Marcelo Choudhary MD [Primary Care Provider] - 3 Days Patient Instructions/Handouts: *[facility] - Bronchoscopy Discharge Instructions, Acute Headache (DC) Discharge Disposition: HOME SELF-CARE
== END 2017-05-31 17:04 | disposition home or self-care (01) | DRG 164 ==
LOC: EC 03:04 → 6SEL 03:59
PROVIDERS: ADMIT Hospitalist; ATTEND Hospitalist
PROC: 0W3Q8ZZ Control Bleeding in Respiratory Tract, Via Natural or Artificial Opening Endoscopic (ICD-10-PCS; principal; 2017-05-29)
PROC: 0CJS8ZZ Inspection of Larynx, Via Natural or Artificial Opening Endoscopic (ICD-10-PCS; principal; 2017-05-29)
PROC: 0B9G8ZX Drainage of Left Upper Lung Lobe, Via Natural or Artificial Opening Endoscopic, Diagnostic (ICD-10-PCS; principal; 2017-05-29)
PROC: 0BBG8ZX Excision of Left Upper Lung Lobe, Via Natural or Artificial Opening Endoscopic, Diagnostic (ICD-10-PCS; principal; 2017-05-29)
DX: C34.12 Malignant neoplasm of upper lobe, left bronchus or lung (principal); C79.51 Secondary malignant neoplasm of bone; E22.2 Syndrome of inappropriate secretion of antidiuretic hormone; R13.10 Dysphagia, unspecified; J44.9 Chronic obstructive pulmonary disease, unspecified; R51 Headache; I10 Essential (primary) hypertension; G56.00 Carpal tunnel syndrome, unspecified upper limb; F17.200 Nicotine dependence, unspecified, uncomplicated; M72.2 Plantar fascial fibromatosis; F41.9 Anxiety disorder, unspecified; F32.9 Major depressive disorder, single episode, unspecified; M54.2 Cervicalgia; R07.89 Other chest pain; R63.4 Abnormal weight loss; Z79.899 Other long term (current) drug therapy; Z79.1 Long term (current) use of non-steroidal anti-inflammatories (NSAID); Z76.5 Malingerer [conscious simulation]; Z79.891 Long term (current) use of opiate analgesic; Z82.49 Family history of ischemic heart disease and other diseases of the circulatory system; Z80.1 Family history of malignant neoplasm of trachea, bronchus and lung; Z86.69 Personal history of other diseases of the nervous system and sense organs
CPT/HCPCS: 31623; 31624; 31625; 36415; 70543; 70544; 70549; 70551; 71020; 71275; 80048; 80053; 80061; 81003; 82550; 82553; 84484; 85025; 85027; 85610; 85730; 87070; 87205; 88104; 88108; 88305; 93005; 93880; 96361; 96374; 96375; 99285

== ENCOUNTER 2017-06-11 09:14 | Day surgery (SDC) | payer OTHER ==
[2017-06-11] MEDS ORDERED: ALPRAZolam 0.5 MG TAB PO ONE (09:22)
[2017-06-11] MEDS ORDERED: HYDROmorphone 0.5 MG/0.5 ML SYRINGE IVP PRN (09:22)
[2017-06-11 09:37] VITALS: TEMP 97.9
[2017-06-11 09:45] LABS: Mean Platelet Volume 7.2
[2017-06-11 09:54] LABS: INR 1.1 (<1.2); Prothrombin Time 10.7 sec (9.0-12.0)
[2017-06-11] MEDS: HYDROmorphone 1 MG/ML 1 ML SYRINGE IM PRN ×2 (10:51→12:19)
[2017-06-11] MEDS ORDERED: HYDROmorphone 1 MG/ML 1 ML SYRINGE IVP STA (11:02)
[2017-06-11] MEDS ORDERED: HYDROmorphone 1 MG/ML 1 ML SYRINGE ONE (12:02)
[2017-06-11 12:24] VITALS: RESP 18
--- NOTE | 2017-06-11 12:27 | XR ---
EXAMINATION TYPE: XR chest 1V portable DATE OF EXAM: 06/11/2017 Comparison: 05/28/2017 Clinical History: 51-year-old female post chest biopsy Findings: Heart is mildly enlarged. Redemonstrated left hilar mass. Continued elevation of the left hemidiaphra gm, similar to prior. Mild interstitial prominence especially in the left upper lobe is unchanged. So me strandy atelectasis at the left base. No appreciable pneumothorax. Impression: 1. Left hilar mass postbiopsy. No appreciable pneumothorax. 2. Similar volume loss in the left hemithorax and stable interstitial changes in the left upper lobe likely secondary to venous congestion from narrowing and compression of hilar vasculature. 3. Similar mild cardiomegaly.
--- NOTE | 2017-06-11 12:44 | CT ---
EXAMINATION TYPE: CT guided FNA DATE OF EXAM: 06/11/2017 COMPARISON: CT angiogram of the chest 05/28/2017 HISTORY: Lung mass, lytic bone lesions CT DLP: 596 mGycm Automated exposure control for dose reduction was used. FINDINGS: Maximal barrier technique was utilized. The skin overlying a suitable path to the lesion was localiz ed using CT and the overlying skin was prepped and draped. Lidocaine used for local anesthesia. A s kin alisa made with a scalpel. Using CT guidance, access was gained to the lesion with a 25-gauge nee dle and additional passes made with a 21-gauge needle, 25-gauge needles. Aspirated specimen submitte d to cytology. 4 passes were performed in all. Following the procedure no immediate complications. The patient is discharged in stable condition. Hemostasis achieved. IMPRESSION: SUCCESSFUL CT GUIDED BIOPSY. PATHOLOGY PENDING. THIS PROCEDURE WAS PERFORMED BY THE UNDERSIGNED.
[2017-06-11 12:50] VITALS: BP 126/67; PULSE 84
== END 2017-06-11 12:50 | disposition home or self-care (01) ==
LOC: RADPROMAIN 09:14
PROVIDERS: ATTEND Internal Medicine
DX: C34.92 Malignant neoplasm of unspecified part of left bronchus or lung (principal); I51.7 Cardiomegaly
CPT/HCPCS: 88305; 88173; 85049; 85610; 88342; 88341; 71010; 36415; 77012; 10022; J1170; Q9967